=== PATIENT | female | born 1935 | race Caucasian/White ===

== ENCOUNTER 2017-07-01 10:37 | Emergency (ER) | payer MEDICARE ==
[2017-07-01 10:52] VITALS: TEMP 98.2
[2017-07-01] MEDS ORDERED: SODIUM CHLORIDE 0.9% 1,000 ML IV STA (11:30)
[2017-07-01] MEDS ORDERED: LABETALOL 5 MG/ML VIAL MDV IVP STA (11:30)
--- NOTE | 2017-07-01 11:37 | ED ---
General Adult HPI - General Chief complaint: Recheck/Abnormal Lab/Rx Stated complaint: Hypertensive Time Seen by Provider: 07/01/17 10:57 Source: patient, RN notes reviewed Mode of arrival: wheelchair Limitations: no limitations - History of Present Illness Initial comments: 81-year-old female presents to the emergency department with a chief complaint of hypertension. She was recently switched to losartan last week. She woke up this morning and took her blood pressure and it was high. She states it was in the 190s over 90s. She denies any symptoms no headache no nausea no vomiting no falls. She states she did not take her dose of losartan this morning she just came here. She denies any weakness. She states that she's not having any other symptoms. She just was concerned due to her blood pressure so she thought that she should be seen. Patient denies any recent fever, chills, shortness of breath, chest pain, back pain, abdominal pain, nausea vomiting, numbness or tingling, dysuria or hematuria, constipation or diarrhea, headaches or visual changes, or any other current symptoms. - Related Data Home Medications Medication Instructions Recorded Confirmed Cholecalciferol [Vitamin D3] 1,000 unit PO DAILY 07/01/17 07/01/17 Cinnamon Bark [Cinnamon] 500 mg PO DAILY 07/01/17 07/01/17 Fish Oil(Unknown Dose) 1 cap PO DAILY 07/01/17 07/01/17 Garlic 1 tab PO DAILY 07/01/17 07/01/17 Levothyroxine Sodium [Synthroid] 125 mcg PO DAILY 07/01/17 07/01/17 Losartan [Cozaar] 50 mg PO DAILY 07/01/17 07/01/17 Allergies Allergy/AdvReac Type Severity Reaction Status Date / Time No Known Allergies Allergy Verified 07/01/17 11:25 Review of Systems ROS Statement: Those systems with pertinent positive or pertinent negative responses have been documented in the HPI. ROS Other: All systems not noted in ROS Statement are negative. Past Medical History Past Medical History: Cancer, Hypertension, Thyroid Disorder History of Any Multi-Drug Resistant Organisms: None Reported Additional Past Surgical History / Comment(s): throidectomy Past Psychological History: No Psychological Hx Reported Smoking Status: Never smoker Past Alcohol Use History: Occasional Past Drug Use History: None Reported General Exam Limitations: no limitations General appearance: alert, in no apparent distress Eye exam: Present: normal appearance, PERRL, EOMI. Absent: scleral icterus, conjunctival injection, periorbital swelling ENT exam: Present: normal exam, mucous membranes moist Neck exam: Present: normal inspection. Absent: tenderness, meningismus, lymphadenopathy Respiratory exam: Present: normal lung sounds bilaterally. Absent: respiratory distress, wheezes, rales, rhonchi, stridor Cardiovascular Exam: Present: regular rate, normal rhythm, normal heart sounds. Absent: systolic murmur, diastolic murmur, rubs, gallop, clicks Neurological exam: Present: alert, oriented X3 Psychiatric exam: Present: normal affect, normal mood Skin exam: Present: warm, dry, intact, normal color. Absent: rash Course Vital Signs 07/01/17 07/01/17 07/01/17 10:47 11:19 12:30 Temperature 98.2 F Pulse Rate 94 91 Respiratory 18 19 Rate Blood Pressure 187/99 196/94 147/78 O2 Sat by Pulse 97 100 100 Oximetry EKG Findings - EKG Comments: EKG Findings:: Sinus rhythm with premature atrial complexes, ventricular 72, [place] interval 1:30, QS duration 84 Medical Decision Making - Medical Decision Making 81-year-old female presents for concern due to hypertension. Patient's medications were recently changed and she did not take this morning's dose. This time patient's lab work is been reviewed. At this time we discussed the importance of taking her medications as prescribed. We discussed follow-up and return parameters. Patient stated that she understood and she questions have been answered. She'll be discharged. - Lab Data Result diagrams: 07/01/17 11:45 07/01/17 11:45 Lab Results 07/01/17 07/01/17 07/01/17 Range/Units 11:45 11:45 11:45 WBC 7.7 (3.8-10.6) k/uL RBC 5.21 (3.80-5.40) m/uL Hgb 15.2 (11.4-16.0) gm/dL Hct 45.5 (34.0-46.0) % MCV 87.3 (80.0-100.0) fL MCH 29.1 (25.0-35.0) pg MCHC 33.3 (31.0-37.0) g/dL RDW 13.8 (11.5-15.5) % Plt Count 218 (150-450) k/uL Neutrophils % 73 % Lymphocytes % 18 % Monocytes % 7 % Eosinophils % 1 % Basophils % 1 % Neutrophils # 5.6 (1.3-7.7) k/uL Lymphocytes # 1.4 (1.0-4.8) k/uL Monocytes # 0.5 (0-1.0) k/uL Eosinophils # 0.1 (0-0.7) k/uL Basophils # 0.0 (0-0.2) k/uL Sodium 142 (137-145) mmol/L Potassium 4.5 (3.5-5.1) mmol/L Chloride 104 (98-107) mmol/L Carbon Dioxide 26 (22-30) mmol/L Anion Gap 12 mmol/L BUN 19 H (7-17) mg/dL Creatinine 0.96 (0.52-1.04) mg/dL Est GFR (MDRD) Af Amer >60 (>60 ml/min/1.73 sqM) Est GFR (MDRD) Non-Af 56 (>60 ml/min/1.73 sqM) Glucose 129 H (74-99) mg/dL Calcium 10.3 H (8.4-10.2) mg/dL Total Bilirubin 1.6 H (0.2-1.3) mg/dL AST 23 (14-36) U/L ALT 22 (9-52) U/L Alkaline Phosphatase 133 H (38-126) U/L Troponin I <0.012 (0.000-0.034) ng/mL Total Protein 7.8 (6.3-8.2) g/dL Albumin 4.6 (3.5-5.0) g/dL Urine Color Urine Appearance (Clear) Urine pH (5.0-8.0) Ur Specific [place] (1.001-1.035) Urine Protein (Negative) Urine Glucose (UA) (Negative) Urine Ketones (Negative) Urine Blood (Negative) Urine Nitrite (Negative) Urine Bilirubin (Negative) Urine Urobilinogen (<2.0) mg/dL Ur Leukocyte Esterase (Negative) Urine RBC (0-5) /hpf Urine WBC (0-5) /hpf Ur Squamous Epith Cells (0-4) /hpf Hyaline Casts (0-2) /lpf Urine Mucus (None) /hpf 07/01/17 Range/Units 12:05 WBC (3.8-10.6) k/uL RBC (3.80-5.40) m/uL Hgb (11.4-16.0) gm/dL Hct (34.0-46.0) % MCV (80.0-100.0) fL MCH (25.0-35.0) pg MCHC (31.0-37.0) g/dL RDW (11.5-15.5) % Plt Count (150-450) k/uL Neutrophils % % Lymphocytes % % Monocytes % % Eosinophils % % Basophils % % Neutrophils # (1.3-7.7) k/uL Lymphocytes # (1.0-4.8) k/uL Monocytes # (0-1.0) k/uL Eosinophils # (0-0.7) k/uL Basophils # (0-0.2) k/uL Sodium (137-145) mmol/L Potassium (3.5-5.1) mmol/L Chloride (98-107) mmol/L Carbon Dioxide (22-30) mmol/L Anion Gap mmol/L BUN (7-17) mg/dL Creatinine (0.52-1.04) mg/dL Est GFR (MDRD) Af Amer (>60 ml/min/1.73 sqM) Est GFR (MDRD) Non-Af (>60 ml/min/1.73 sqM) Glucose (74-99) mg/dL Calcium (8.4-10.2) mg/dL Total Bilirubin (0.2-1.3) mg/dL AST (14-36) U/L ALT (9-52) U/L Alkaline Phosphatase (38-126) U/L Troponin I (0.000-0.034) ng/mL Total Protein (6.3-8.2) g/dL Albumin (3.5-5.0) g/dL Urine Color Yellow Urine Appearance Clear (Clear) Urine pH 5.5 (5.0-8.0) Ur Specific [place] 1.021 (1.001-1.035) Urine Protein 1+ H (Negative) Urine Glucose (UA) Negative (Negative) Urine Ketones 2+ H (Negative) Urine Blood Trace H (Negative) Urine Nitrite Negative (Negative) Urine Bilirubin Negative (Negative) Urine Urobilinogen <2.0 (<2.0) mg/dL Ur Leukocyte Esterase Small H (Negative) Urine RBC 2 (0-5) /hpf Urine WBC 12 H (0-5) /hpf Ur Squamous Epith Cells 1 (0-4) /hpf Hyaline Casts 24 H (0-2) /lpf Urine Mucus Moderate H (None) /hpf Disposition Clinical Impression: Hypertension Disposition: HOME SELF-CARE Condition: Stable Instructions: Hypertension (ED) Additional Instructions: Please use medication as discussed. Please follow up with family doctor if symptoms have not improved over the next two days. Please return to the emergency room if your symptoms increase or worsen or for any other concerns. Referrals: Chloe Menjivar MD [Primary Care Provider] - 1-2 days Time of Disposition: 13:08
[2017-07-01 12:23] LABS: Basophils % (A) 1 %; Eosinophils # (A) 0.1 k/uL (0-0.7); Eosinophils % (A) 1 %; HCT 45.5 % (34.0-46.0); HGB 15.2 gm/dL (11.4-16.0); Lymphocytes # (A) 1.4 k/uL (1.0-4.8); Lymphocytes % (A) 18 %; MCH 29.1 pg (25.0-35.0); MCHC 33.3 g/dL (31.0-37.0); MCV 87.3 fL (80.0-100.0); Mean Platelet Volume 7.8; Monocytes # (A) 0.5 k/uL (0-1.0); Monocytes % (A) 7 %; Neutrophils # (A) 5.6 k/uL (1.3-7.7); Neutrophils % (A) 73 %; Platelet Count 218 k/uL (150-450); RBC 5.21 m/uL (3.80-5.40); RDW 13.8 % (11.5-15.5); WBC 7.7 k/uL (3.8-10.6)
[2017-07-01 12:29] LABS: ALT 22 U/L (9-52); AST 23 U/L (14-36); Albumin 4.6 g/dL (3.5-5.0); Alkaline Phosphatase 133 U/L (38-126); Anion Gap 12 mmol/L; Blood Urea Nitrogen 19 mg/dL (7-17); Calcium 10.3 mg/dL (8.4-10.2); Carbon Dioxide 26 mmol/L (22-30); Chloride 104 mmol/L (98-107); Glucose 129 mg/dL (74-99); Potassium 4.5 mmol/L (3.5-5.1); Sodium 142 mmol/L (137-145); Total Bilirubin 1.6 mg/dL (0.2-1.3); Total Protein 7.8 g/dL (6.3-8.2)
[2017-07-01 12:33] LABS: Appearance,Urine Clear (Clear); Bilirubin,Urine Negative (Negative); Blood,Urine Trace (Negative); Color,Urine Yellow; Glucose,Urine (UA) Negative (Negative); Hyaline Casts,Urine 24 /lpf (0-2); Ketones,Urine 2+ (Negative); Leukocyte Esterase,Urine Small (Negative); Mucus,Urine Moderate /hpf; Nitrite,Urine Negative (Negative); PH, Urine 5.5 (5.0-8.0); Protein,Urine 1+ (Negative); RBC,Urine 2 /hpf (0-5); Specific Gravity,Urine 1.021 (1.001-1.035); Squamous Epithelial Cell,Urine 1 /hpf (0-4); Urobilinogen,Urine <2.0 mg/dL (<2.0); WBC,Urine 12 /hpf (0-5)
[2017-07-01 13:10] VITALS: BP 142/82; PULSE 76; RESP 16
== END 2017-07-01 13:20 | disposition home or self-care (01) ==
LOC: EC 10:37
DX: I10 Essential (primary) hypertension (principal); E89.0 Postprocedural hypothyroidism; Z79.899 Other long term (current) drug therapy
CPT/HCPCS: 36415; 80053; 81001; 84484; 85025; 93005; 96374; 99283

== ENCOUNTER → 2017-08-26 | Outpatient (CLI) | payer MEDICARE ==
--- NOTE | 2017-08-27 10:37 | ECHOF ---
Referral Reason:R07.89 Other Chest Pain MEASUREMENTS -------- HEIGHT: 157.5 cm WEIGHT: 58.5 kg BP: IVSd: 1.1 cm (0.6 - 1.1) LVIDd: 4.0 cm (3.9 - 5.3) LVPWd: 1.1 cm (0.6 - 1.1) IVSs: 1.5 cm LVIDs: 1.3 cm LVPWs: 1.8 cm LAESV Index (A-L): 21.30 ml/m Ao Diam: 2.7 cm (2.0 - 3.7) AV Cusp: 1.9 cm (1.5 - 2.6) LA Diam: 3.2 cm (2.7 - 3.8) MV EXCURSION: 13.059 mm (> 18.000) MV EF SLOPE: 34 mm/s (70 - 150) EPSS: 1.1 cm MV E Bryan: 0.84 m/s MV DecT: 218 ms MV A Bryan: 0.99 m/s MV E/A Ratio: 0.85 RAP: 5.00 mmHg RVSP: 14.52 mmHg FINDINGS -------- Sinus rhythm. This was a technically good study. The left ventricular size is normal. Left ventricular wall thickness is normal. Overall left vent ricular systolic function is normal with, an EF between 55 - 60 %. The right ventricle is normal in size and function. The left atrium is normal in size. The right atrium is normal in size. Aortic valve is trileaflet and is mildly thickened. The mitral valve leaflets are mildly thickened. There is trace mitral regurgitation. Trace tricuspid regurgitation present. The right ventricular systolic pressure, as measured by Dopp ler, is 14.52mmHg. Pulmonic valve appears structurally normal. The aortic root size is normal. Normal inferior vena cava with normal inspiratory collapse consistent with estimated right atrial pre ssure of 5 mmHg. The pericardium is normal. CONCLUSIONS -------- 1. Sinus rhythm. 2. This was a technically good study. 3. The left ventricular size is normal. 4. Left ventricular wall thickness is normal. 5. Overall left ventricular systolic function is normal with, an EF between 55 - 60 %. 6. The right ventricle is normal in size and function. 7. The left atrium is normal in size. 8. The right atrium is normal in size. 9. Aortic valve is trileaflet and is mildly thickened. 10. The mitral valve leaflets are mildly thickened. 11. There is trace mitral regurgitation. 12. Trace tricuspid regurgitation present. 13. The right ventricular systolic pressure, as measured by Doppler, is 14.52mmHg. 14. Pulmonic valve appears structurally normal. 15. The aortic root size is normal. 16. Normal inferior vena cava with normal inspiratory collapse consistent with estimated right atrial pressure of 5 mmHg. 17. The pericardium is normal. PRODUCTION ESTIMATOR: Kathie Christensen RDCS
== END | disposition home or self-care (01) ==
LOC: RADECHMAIN 14:17
PROVIDERS: ATTEND Internal Medicine
DX: R07.89 Other chest pain (principal)
CPT/HCPCS: 93306

== ENCOUNTER 2024-03-26 12:32 | Inpatient (IN) | payer MEDICARE ==
[2024-03-26 12:54] LABS: Glucose,Whole Blood 226 mg/dL (70-110)
[2024-03-26 13:03] LABS: Anisocytosis Slight; Basophils # (A) 0.1 k/uL (0-0.2); Basophils % (A) 1 %; Eosinophils # (A) 0.1 k/uL (0-0.7); Eosinophils % (A) 1 %; HCT 42.6 % (34.0-46.0); HGB 13.7 gm/dL (11.4-16.0); Lymphocytes # (A) 1.4 k/uL (1.0-4.8); Lymphocytes % (A) 14 %; MCH 28.9 pg (25.0-35.0); MCHC 32.2 g/dL (31.0-37.0); MCV 89.7 fL (80.0-100.0); Mean Platelet Volume 8.3; Monocytes # (A) 0.6 k/uL (0-1.0); Monocytes % (A) 6 %; Neutrophils # (A) 7.6 k/uL (1.3-7.7); Neutrophils % (A) 78 %; Platelet Count 245 k/uL (150-450); RBC 4.75 m/uL (3.80-5.40); RDW 16.3 % (11.5-15.5); WBC 9.8 k/uL (3.8-10.6)
--- NOTE | 2024-03-26 13:05 | ED ---
General Adult HPI - General Chief complaint: Neuro Symptoms/Deficit Stated complaint: Slurred speech Time Seen by Provider: 03/26/24 12:48 Source: patient, family, RN notes reviewed, old records reviewed - History of Present Illness Initial comments: Patient is an 88-year-old female with past medical history remarkable for hypertension, sciatica, hypothyroidism secondary to thyroidectomy who presents emergency department complaining of wake-up symptoms of slurred speech, aphasia. No prior history of stroke. Unknown if she took her medications this morning. Patient's daughter noticed that when she called this morning at approximately 7:30 AM, patient was talking funny. States it was somewhat slurred but also confused and mixing up words. Patient denies any symptoms other than chronic sciatica pain in her leg. She denies chest pain or shortness of breath. Denies any abdominal pain. Intermittently has the symptoms. Is still coherent but will confuse words as well as discussions and instructions. Presents for further evaluation at this time. Only significant recent history is increased urinary frequency. Unknown if she has a UTI. Patient is not on blood thinners. No trauma. Last known well was sometime last night when she spoke with her daughter. Symptoms began when she awoke this morning. - Related Data Allergies Allergy/AdvReac Type Severity Reaction Status Date / Time No Known Allergies Allergy Verified 07/01/17 11:25 Review of Systems ROS Statement: Those systems with pertinent positive or pertinent negative responses have been documented in the HPI. Review of Systems: CONST: Denies fever EYES: Denies blurry vision ENT: Denies nasal congestion C/V: Denies Chest pain RESP: Denies shortness of breath GI: Denies abdominal pain : Denies dysuria SKIN: Denies rash. MSK: Denies joint pain. NEURO: Denies headache ROS Other: All systems not noted in ROS Statement are negative. Past Medical History Past Medical History: Cancer, Hypertension, Thyroid Disorder History of Any Multi-Drug Resistant Organisms: None Reported Additional Past Surgical History / Comment(s): throidectomy Past Psychological History: No Psychological Hx Reported Past Alcohol Use History: Occasional Past Drug Use History: None Reported General Exam - General Exam Comments Initial Comments: General: Appears in no acute distress. HEAD: Normal with no signs of head trauma. EYES: PERRLA, EOMI, conjunctiva normal, no discharge. Pupils are 2 mm and equal bilaterally. ENT: Hearing grossly intact, normal oropharynx. RESPIRATORY: Clear breath sounds bilaterally. No wheezes, rales, or rhonchi. C/V: Regular rate and rhythm. S1 and S2 auscultated, no edema, peripheral pulses 2+ and intact throughout ABD: Abd is soft, nontender, nondistended EXT: Normal range of motion, no obvious deformity SKIN: No rashes or lesions observed on exposed skin. NEURO: Alert and oriented x 4. Cranial nerves II through XII appear to be intact. NIH is 2. Received at 1 point for dysarthria and 1 point for aphasia. Aphasia seems to be more expressive. Course Vital Signs 03/26/24 03/26/24 03/26/24 12:34 12:50 12:51 Temperature 98.7 F Pulse Rate 97 87 92 Respiratory 20 18 20 Rate Blood Pressure 225/99 199/98 199/98 O2 Sat by Pulse 89 L 99 99 Oximetry 03/26/24 13:05 Temperature Pulse Rate 84 Respiratory 18 Rate Blood Pressure 209/110 O2 Sat by Pulse 98 Oximetry Medical Decision Making - Medical Decision Making Was pt. sent in by a medical professional or institution (, PA, [employer], urgent care, hospital, or jail...) When possible be specific @ -No Did you speak to anyone other than the patient for history (EMS, parent, family, police, friend...)? What history was obtained from this source @ -Spoke with patient's daughter who is at bedside and assist with patient's past medical history. Did you review nursing and triage notes (agree or disagree)? Why? @ -I reviewed and agree with nursing and triage notes Were old charts reviewed (outside hosp., previous admission, EMS record, old EKG, old radiological studies, urgent care reports/EKG's, jail records)? Report findings @ -Old charts reviewed confirming patient does have history of hypertension and thyroid disease. I do not see a blood thinner listed upon list of medications Differential Diagnosis (chest pain, altered mental status, abdominal pain women, abdominal pain men, vaginal bleeding, weakness, fever, dyspnea, syncope, headach e, dizziness, GI bleed, back pain, seizure, CVA, palpatations, mental health, musculoskeletal)? @ -Differential CVA Ischemic stroke, hemorrhagic stroke, brain tumor, atypical migraine, Wernicke's encephalopathy, seizure, multiple sclerosis, meningitis, encephalitis, hypoglycemia, Guillain-Lawson, electrolytes disturbance, myasthenia gravis.... This is not meant to be an all-inclusive list EKG interpreted by me (3pts min.). @ -As above X-rays interpreted by me (1pt min.). @ -Chest x-ray reveals no obvious acute cardiopulmonary process. CT interpreted by me (1pt min.). @ -CT brain reveals likely chronic calcified meningioma. No other obvious acute findings. CT angiogram of the head and neck reveals no obvious large vessel occlusion or acute findings. U/S interpreted by me (1pt. min.). @ -None done What testing was considered but not performed or refused? (CT, X-rays, U/S, labs)? Why? @ -None What meds were considered but not given or refused? Why? @ -None Did you discuss the management of the patient with other professionals (professionals i.e. DrHung, PA, [employer], lab, RT, psych nurse, social worker palliative care, sales technician home theater, teacher, staff combat information center officer, field case manager)? Give summary @ -Spoke with the neurointensivist, Dr. Perez. Was in agreement with plan for likely medical management concerning patient's low NIH as well as unknown last known well. Agreed not to administer thrombolytic therapy at this time. Agreed risks outweighed benefit. Also was in agreement with plan for permissive hypertension. Spoke with the admitting provider, Dr. Landry who accepted the admission. Was smoking cessation discussed for >3mins.? @ -No Was critical care preformed (if so, how long)? @ -Yes, 36 minutes Were there social determinants of health that impacted care today? How? (Homelessness, low income, unemployed, alcoholism, drug addiction, transportation, low edu. Level, literacy, decrease access to med. care, intermediate, rehab)? @ -No Was there de-escalation of care discussed even if they declined (Discuss DNR or withdrawal of care, Hospice)? DNR status @ -No What co-morbidities impacted this encounter? (DM, HTN, Smoking, COPD, CAD, Cancer, CVA, ARF, Chemo, Hep., AIDS, mental health diagnosis, sleep apnea, morbid obesity)? @ -Hypertension Was patient admitted / discharged? Hospital course, mention meds given and route, prescriptions, significant lab abnormalities, going to OR and other pe rtinent info. @ -Patient presents emergency department with strokelike symptoms. Appears to have expressive aphasia with intermittent dysarthria. NIH at worst is a 2. Last known well was sometime yesterday evening. Woke up with symptoms. Therefore patient is not a candidate for thrombolytic therapy. Risks far outweigh the benefits. Patient is outside of the time window. Symptoms were noticed this morning at approximately 7:30 AM when patient's daughter called her and noticed it over the phone. She spoke with her yesterday evening and patient was acting normally. Patient feels like she does not have any symptoms. Unknown what time these occurred between now and yesterday evening. As stated above, risks far outweigh the benefits of administering thrombolytic therapy. Patient and patient's daughter in agreement this plan. Patient made a code stroke. Code stroke was activated at 1250. Vital signs remarkable for mild hypertension. Spoke with the neurointensivist, Dr. Perez at 1310. Was in agreement with plan for likely medical management concerning patient's low NIH as well as unknown last known well. Agreed not to administer thrombolytic therapy at this time. Agreed risks outweighed benefit. Also was in agreement with plan for permissive hypertension. EKG shows no signs of acute ischemia. Imaging reveals a left temporal calcified meningioma which is likely chronic and an incidental finding. No other obvious acute findings. Laboratory studies unremarkable. I discussed results with patient as well as daughter. Recommended admission for neurology evaluation as well as MRI. They were in agreement this plan. Patient administered 325 mg of aspirin. Neurology consulted. I spoke with the admitting provider, Dr. Landry who accepted the admission. Symptoms at time of admission are improved. Intermittent NIH of 1 for the mild expressive aphasia w hich is improved from when I evaluated the patient.We will continue with permissive hypertension at this time. Undiagnosed new problem with uncertain prognosis? @ -No Drug Therapy requiring intensive monitoring for toxicity (Heparin, Nitro, Insulin, Cardizem)? @ -No Were any procedures done? @ -No Diagnosis/symptom? @ -CVA Acute, or Chronic, or Acute on Chronic? @ -Acute Uncomplicated (without systemic symptoms) or Complicated (systemic symptoms)? @ -Complicated Side effects of treatment? @ -None Exacerbation, Progression, or Severe Exacerbation] @ -No Poses a threat to life or bodily function? @ -Potentially, yes - Lab Data Result diagrams: 03/26/24 12:54 03/26/24 12:54 Lab Results 03/26/24 03/26/24 03/26/24 Range/Units 12:53 12:54 12:54 WBC 9.8 (3.8-10.6) k/uL RBC 4.75 (3.80-5.40) m/uL Hgb 13.7 (11.4-16.0) gm/dL Hct 42.6 (34.0-46.0) % MCV 89.7 (80.0-100.0) fL MCH 28.9 (25.0-35.0) pg MCHC 32.2 (31.0-37.0) g/dL RDW 16.3 H (11.5-15.5) % Plt Count 245 (150-450) k/uL MPV 8.3 Neutrophils % 78 % Lymphocytes % 14 % Monocytes % 6 % Eosinophils % 1 % Basophils % 1 % Neutrophils # 7.6 (1.3-7.7) k/uL Lymphocytes # 1.4 (1.0-4.8) k/uL Monocytes # 0.6 (0-1.0) k/uL Eosinophils # 0.1 (0-0.7) k/uL Basophils # 0.1 (0-0.2) k/uL Anisocytosis Slight PT 10.1 (10.0-12.5) sec INR 0.9 (<1.2) APTT 24.2 (22.0-30.0) sec Sodium (137-145) mmol/L Potassium (3.5-5.1) mmol/L Chloride (98-107) mmol/L Carbon Dioxide (22-30) mmol/L Anion Gap mmol/L BUN (7-17) mg/dL Creatinine (0.52-1.04) mg/dL Est GFR (CKD-EPI)AfAm (>60 ml/min/1.73 sqM) Est GFR (CKD-EPI)NonAf (>60 ml/min/1.73 sqM) Glucose (74-99) mg/dL POC Glucose (mg/dL) 226 H (70-110) mg/dL POC Glu Shot Blaster ID Branden Lozada Calcium (8.4-10.2) mg/dL Total Bilirubin (0.2-1.3) mg/dL AST (14-36) U/L ALT (4-34) U/L Alkaline Phosphatase (38-126) U/L Creatine Kinase (30-135) U/L Total Protein (6.3-8.2) g/dL Albumin (3.5-5.0) g/dL 03/26/24 Range/Units 12:54 WBC (3.8-10.6) k/uL RBC (3.80-5.40) m/uL Hgb (11.4-16.0) gm/dL Hct (34.0-46.0) % MCV (80.0-100.0) fL MCH (25.0-35.0) pg MCHC (31.0-37.0) g/dL RDW (11.5-15.5) % Plt Count (150-450) k/uL MPV Neutrophils % % Lymphocytes % % Monocytes % % Eosinophils % % Basophils % % Neutrophils # (1.3-7.7) k/uL Lymphocytes # (1.0-4.8) k/uL Monocytes # (0-1.0) k/uL Eosinophils # (0-0.7) k/uL Basophils # (0-0.2) k/uL Anisocytosis PT (10.0-12.5) sec INR (<1.2) APTT (22.0-30.0) sec Sodium 139 (137-145) mmol/L Potassium 4.1 (3.5-5.1) mmol/L Chloride 103 (98-107) mmol/L Carbon Dioxide 29 (22-30) mmol/L Anion Gap 7 mmol/L BUN 18 H (7-17) mg/dL Creatinine 0.94 (0.52-1.04) mg/dL Est GFR (CKD-EPI)AfAm 64 (>60 ml/min/1.73 sqM) Est GFR (CKD-EPI)NonAf 55 (>60 ml/min/1.73 sqM) Glucose 245 H (74-99) mg/dL POC Glucose (mg/dL) (70-110) mg/dL POC Glu Shot Blaster ID Calcium 10.0 (8.4-10.2) mg/dL Total Bilirubin 0.9 (0.2-1.3) mg/dL AST 32 (14-36) U/L ALT 18 (4-34) U/L Alkaline Phosphatase 136 H (38-126) U/L Creatine Kinase 74 (30-135) U/L Total Protein 7.6 (6.3-8.2) g/dL Albumin 4.6 (3.5-5.0) g/dL - EKG Data -: EKG Interpreted by Me EKG Comments: 12-lead Electrocardiogram Interpretation Note EKG was reviewed and interpreted by myself. 12-lead ECG performed at 1323 is interpreted by me as revealing normal sinus rhythm at a rate of 88 beats per minute. [place] is normal. MI interval is 120 ms, QRS duration is 89 ms, QTc is 392 ms.. There were no ST or T wave abnormalities to suggest myocardial ischemia or injury. R wave progression across the precordium was satisfactory. By my interpretation this EKG is non-diagnostic for acute ischemia. Critical Care Time Critical Care Time: Yes Total Critical Care Time: 36 Disposition Clinical Impression: Cerebrovascular accident (CVA) Disposition: ADMITTED IP TO THIS [facility] Condition: Stable Referrals: None,Stated [REFERRING] - 1-2 days Time of Disposition: 14:15
[2024-03-26 13:12] LABS: ALT 18 U/L (4-34); AST 32 U/L (14-36); African American GFR (CKD) 64 (>60 ml/min/1.73 sqM); Albumin 4.6 g/dL (3.5-5.0); Alkaline Phosphatase 136 U/L (38-126); Anion Gap 7 mmol/L; Blood Urea Nitrogen 18 mg/dL (7-17); Carbon Dioxide 29 mmol/L (22-30); Chloride 103 mmol/L (98-107); Creatine Kinase 74 U/L (30-135); Glucose 245 mg/dL (74-99); INR 0.9 (<1.2); Non-African American GFR(CKD) 55 (>60 ml/min/1.73 sqM); Partial Thromboplastin Time 24.2 sec (22.0-30.0); Potassium 4.1 mmol/L (3.5-5.1); Prothrombin Time 10.1 sec (10.0-12.5); Sodium 139 mmol/L (137-145); Total Bilirubin 0.9 mg/dL (0.2-1.3); Total Protein 7.6 g/dL (6.3-8.2)
--- NOTE | 2024-03-26 13:14 | CT ---
EXAMINATION TYPE: CODE STROKE: CT brain wo contr DATE OF EXAM: 03/26/2024 1:09 PM COMPARISON: None CLINICAL INDICATION: Female, 88 years old with history of Neuro deficit, acute, stroke suspected, [facility] RRED SPEECH AND CONFUSION TECHNIQUE: Brain: Axial CT images of the brain were obtained with coronal and sagittal reformats created and rev iewed. Contrast used: None. Oral contrast used: None. CT DLP: 1100.6 mGycm, Automated exposure control for dose reduction was used. FINDINGS: Brain: Extra-axial spaces: No abnormal extra-axial fluid collections. Left extra-axial calcified lesion like ly representing calcified meningioma measuring up to 18 mm. Ventricular system: Dilatation in proportion to cerebral atrophy. Cerebral parenchyma: Cerebral atrophy. No acute intraparenchymal hemorrhage or mass effect. The hanna -white junction is well differentiated. Scattered hypoattenuating areas are seen within the white mat ter. Cerebellum: Unremarkable. Mass effect: No evidence of midline shift. Intracranial vasculature: Atherosclerotic calcifications of the intracranial vessels. Soft tissues: Normal. Calvarium/osseous structures: No depressed skull fracture. Paranasal sinuses and mastoid air cells: Mild scattered paranasal sinus disease. Visualized orbits: Bilateral aphakia IMPRESSION: 1. No acute intracranial process. 2. Nonspecific white matter changes, likely secondary to chronic small vessel ischemic disease. 3. Left temporal region probable calcified meningioma. [facility], , 03/26/2024 1:12 PM
[2024-03-26] MEDS: SODIUM CHLORIDE 0.9% 1,000 ML IV STA (13:19)
--- NOTE | 2024-03-26 13:42 | CT ---
EXAMINATION TYPE: CT angio head neck DATE OF EXAM: 03/26/2024 1:25 PM COMPARISON: . CLINICAL INDICATION: Female, 88 years old with history of Neuro deficit, acute, stroke suspected; [facility] , [facility] SPEECH AND CONFUSION TECHNIQUE: Axially acquired helical CT angiogram of the head and neck was obtained with contrast. Axi al images are supplemented with 3D reconstructions and MIP images which were post-processed at an in dependent workstation. NASCET criteria used. Contrast used:65ml mL of Isovue 370 with IV Contrast, Oral contrast used: None. CT DLP: 307.5 mGycm, Automated exposure control for dose reduction was used. FINDINGS: CTA HEAD: No evidence of acute intracranial hemorrhage, mass effect, or midline shift. The ventricles, sulci, a nd cisterns are unremarkable. Bilaterally aphakia. Left extra-axial calcified meningioma. Vertebral arteries: The vertebral arteries are patent. Vertebral artery dominance: Codominant Basilar artery: The basilar artery is intact. The basilar artery bifurcation is normal. Internal Carotid arteries: The cervical, petrous, cavernous and supraclinoid segments are normal. DYANA: Patent with no evidence of aneurysm. ACOM: Present without evidence of aneurysm. MCA: Patent with no evidence of aneurysm. GANG RIDER: Female origin of the right posterior cerebral artery. Patent with no evidence of aneurysm. PCOM: Hypoplastic left and field margin right. Dural sinuses: Patent. CTA NECK: Right Carotid System: The common carotid and external carotid arteries are patent. There is less than 25% stenosis at the c arotid bifurcation secondary to calcified/noncalcified plaque. The rest of the internal carotid arter y is patent. Left Carotid System: The common carotid and external carotid arteries are patent. There is less than 25% stenosis at the c arotid bifurcation secondary to calcified/noncalcified plaque. The rest of the internal carotid arter y is patent. Vertebral arteries are patent without evidence hemodynamically significant stenosis. There is a three-vessel aortic arch. The origins of the great vessels are patent. No evidence of hemo dynamically significant stenosis. IMPRESSION: 1. No evidence of dissection of the cervical internal carotid arteries or vertebral arteries. 2. No any evidence of significant stenosis at the carotid bifurcations. 3. No evidence of intracranial high-grade stenosis or intracranial aneurysm. [facility], , 03/26/2024 1:40 PM
--- NOTE | 2024-03-26 13:45 | XR ---
EXAMINATION TYPE: XR chest 2V DATE OF EXAM: 03/26/2024 1:39 PM COMPARISON: None CLINICAL INDICATION: Female, 88 years old with history of altered mental status; [facility] TECHNIQUE: XR chest 2V Frontal and lateral views of the chest. FINDINGS: Lungs/Pleura: Prominent interstitial lung markings are seen scattered throughout the lungs. No eviden ce of focal consolidation, pneumothorax or pleural effusion. Pulmonary vascularity: Unremarkable. Heart/mediastinum: Cardiomediastinal silhouette is unremarkable. Musculoskeletal: No acute osseous pathology. IMPRESSION: No acute cardiopulmonary disease/process. [facility], , 03/26/2024 1:43 PM
[2024-03-26] MEDS: ASPIRIN 325 MG TAB PO STA (15:14)
[2024-03-26 20:32] LABS: Amorphous Sediment,Urine Rare /hpf; Appearance,Urine Clear (Clear); Bacteria,Urine Few /hpf; Bilirubin,Urine Negative (Negative); Blood,Urine Negative (Negative); Color,Urine Colorless; Glucose,Urine (UA) Negative (Negative); Ketones,Urine Negative (Negative); Leukocyte Esterase,Urine Small (Negative); Nitrite,Urine Negative (Negative); Protein,Urine Trace (Negative); RBC,Urine 2 /hpf (0-5); Specific Gravity,Urine 1.016 (1.001-1.035); Squamous Epithelial Cell,Urine <1 /hpf (0-4); Urobilinogen,Urine <2.0 mg/dL (<2.0); WBC,Urine 26 /hpf (0-5)
[2024-03-26 20:44] LABS: Amphetamine Screen,Urine Not Detected (NotDetected); Barbiturate Screen,Urine Not Detected (NotDetected); Benzodiazepines Screen,Urine Not Detected (NotDetected); Cocaine Screen,Urine Not Detected (NotDetected); Methadone Screen, Urine Not Detected (NotDetected); Opiate Screen,Urine Not Detected (NotDetected); Oxycodone Screen, Urine Not Detected (NotDetected); Phencyclidine Screen,Urine Not Detected (NotDetected); Tricyclic Antidepressant,Urine Not Detected (NotDetected); Urn Cannabinoid Scrn Not Detected (NotDetected)
--- NOTE | 2024-03-26 20:54 | P.HPIM ---
History of Present Illness This is a pleasant 88 years old female with no significant past medical history. Presents because she was talking funny this morning suspicious for slurred speech and aphasia which looks now is resolved. As per patient the daughter noticed this although the patient herself was not sure if this is what happened She denies any other specific symptoms like new weakness or tingling. No headache or dizziness No chest pain, no abdominal pain vomiting or diarrhea She is complaining from increased frequency of urination recently but no dysuria, no suprapubic pain She is non-smoker, nonalcoholic On admission her labs were within the reference range including CBC, BMP, LFT, INR and troponin She is afebrile Blood pressure slightly elevated, currently 157/80 Glucose was somewhat elevated Chest x-ray, CT of the brain were unremarkable Was CTA of the head and neck showing no significant stenosis or aneurysm. EKG is sinus rhythm at [address]-T changes Review of Systems Review of systems CONSTITUTIONAL: No fever, no malaise, no fatigue. HEENT: No recent visual problems or hearing problems. Denied any sore throat. CARDIOVASCULAR: No orthopnea, PND, no palpitations, no syncope. PULMONARY: No shortness of breath, no cough, no hemoptysis. GASTROINTESTINAL: No diarrhea, no nausea, no vomiting, no abdominal pain. Normoactive bowel sounds. NEUROLOGICAL: No headaches, no weakness, no numbness. HEMATOLOGICAL: Denies any bleeding or petechiae. GENITOURINARY: Denies any burning micturition, frequency, or urgency. MUSCULOSKELETAL/RHEUMATOLOGICAL: Denies any joint pain, swelling, or any muscle pain. ENDOCRINE: Denies any polyuria or polydipsia. Past Medical History Past Medical History: Cancer, Hypertension, Thyroid Disorder History of Any Multi-Drug Resistant Organisms: None Reported Additional Past Surgical History / Comment(s): throidectomy Past Psychological History: No Psychological Hx Reported Past Alcohol Use History: Occasional Past Drug Use History: None Reported Medications and Allergies Home Medications Medication Instructions Recorded Confirmed Type Levothyroxine Sodium [Synthroid] 200 mcg PO DAILY 03/26/24 03/26/24 History Allergies Allergy/AdvReac Type Severity Reaction Status Date / Time No Known Allergies Allergy Verified 07/01/17 11:25 Physical Exam Vitals: Vital Signs Temp Pulse Resp BP Pulse Ox 03/26/24 19:34 98.0 F 78 16 157/80 99 11/28/24 18:05 81 18 176/84 98 03/26/24 18:02 86 18 181/83 98 03/26/24 17:35 87 18 98 03/26/24 17:05 87 18 173/83 98 03/26/24 16:35 80 18 170/91 97 03/26/24 16:05 80 18 179/89 98 03/26/24 15:35 79 18 170/80 96 03/26/24 14:37 82 18 185/99 98 03/26/24 14:35 80 18 165/99 96 03/26/24 14:20 84 18 190/98 98 03/26/24 14:05 88 18 201/91 98 03/26/24 13:50 83 18 197/89 98 03/26/24 13:35 84 18 200/85 98 03/26/24 13:05 84 18 209/110 98 03/26/24 12:51 92 20 199/98 99 03/26/24 12:50 87 18 199/98 99 03/26/24 12:34 98.7 F 97 20 225/99 89 L Intake and Output 03/26/24 03/26/24 03/26/24 06:59 14:59 22:59 Other: Weight 54.431 kg GENERAL: The patient is alert and oriented x3, not in any acute distress. Well developed, well nourished. HEENT: Pupils are round and equally reacting to light. EOMI. No scleral icterus. No conjunctival pallor. Normocephalic, atraumatic. No pharyngeal erythema. No thyromegaly. CARDIOVASCULAR: S1 and S2 present. No murmurs, rubs, or gallops. -PULMONARY: Chest is clear to auscultation, no wheezing , bilateral basal crackles. ABDOMEN: Soft, nontender, nondistended, normoactive bowel sounds. No palpable organomegaly. MUSCULOSKELETAL: No joint swelling or deformity. -EXTREMITIES: No cyanosis, clubbing,, 2+ bilateral pitting leg edema. NEUROLOGICAL: Gross neurological examination did not reveal any focal deficits. SKIN: No rashes. no petechiae. Results CBC & Chem 7: 03/26/24 12:54 03/26/24 12:54 Labs: Abnormal Lab Results - Last 24 Hours (Table) 1103/26/24 03/26/24 Range/Units 12:53 12:54 12:54 RDW 16.3 H (11.5-15.5) % BUN 18 H (7-17) mg/dL Glucose 245 H (74-99) mg/dL POC Glucose (mg/dL) 226 H (70-110) mg/dL Alkaline Phosphatase 136 H (38-126) U/L Urine Protein (Negative) Ur Leukocyte Esterase (Negative) Urine WBC (0-5) /hpf Amorphous Sediment (None) /hpf Urine Bacteria (None) /hpf 03/26/24 Range/Units 19:45 RDW (11.5-15.5) % BUN (7-17) mg/dL Glucose (74-99) mg/dL POC Glucose (mg/dL) (70-110) mg/dL Alkaline Phosphatase (38-126) U/L Urine Protein Trace H (Negative) Ur Leukocyte Esterase Small H (Negative) Urine WBC 26 H (0-5) /hpf Amorphous Sediment Rare H (None) /hpf Urine Bacteria Few H (None) /hpf Assessment and Plan Assessment: Slurred speech and expressive aphasia suspicious for stroke Acute CHF with suspected with leg edema and check proBNP Hypertension, permissive hypertension is allowed to the view of possible stroke Hyperglycemia, rule out diabetes mellitus, Increased frequency of urination, rule out UTI or bladder retention Plan: Continue with aspirin, received one-time dose of 325 mg in the emergency room Check echocardiogram and carotid duplex with a neurology consult Check TSH Check hemoglobin A1c Monitor blood pressure Neurology consult labs and medication were reviewed.. Continue same treatment. Continue with symptomatic treatment. Resume home medication. Monitor labs and vitals. DVT and GI prophylaxis. Further recommendations as per clinical course of the patient DVT prophylaxis: Subcutaneous heparin GI Prophylaxis: Pepcid PT/OT: Pending Prognosis is guarded
[2024-03-26] MEDS: FAMOTIDINE 20 MG/2 ML VIAL IV SCH (21:22)
[2024-03-26] MEDS: HEPARIN SODIUM,PORCINE 5,000 UNIT/ML 1 ML VIAL SQ SCH (21:22)
[2024-03-27] MEDS: LEVOTHYROXINE 100 MCG TAB PO SCH (06:12)
[2024-03-27 07:11] LABS: African American GFR (CKD) 62 (>60 ml/min/1.73 sqM); Anion Gap 3 mmol/L; Blood Urea Nitrogen 16 mg/dL (7-17); Calcium 9.3 mg/dL (8.4-10.2); Carbon Dioxide 30 mmol/L (22-30); Chloride 106 mmol/L (98-107); Glucose 132 mg/dL (74-99); Non-African American GFR(CKD) 54 (>60 ml/min/1.73 sqM); Potassium 4.4 mmol/L (3.5-5.1); Sodium 139 mmol/L (137-145)
[2024-03-27 07:19] LABS: NT-Pro-B-Type Natriuretic Pept 769 pg/mL
[2024-03-27 07:26] LABS: Anisocytosis Slight; Basophils % (A) 1 %; Eosinophils # (A) 0.2 k/uL (0-0.7); Eosinophils % (A) 2 %; HCT 38.8 % (34.0-46.0); HGB 12.6 gm/dL (11.4-16.0); Lymphocytes # (A) 1.6 k/uL (1.0-4.8); Lymphocytes % (A) 22 %; MCH 29.4 pg (25.0-35.0); MCHC 32.4 g/dL (31.0-37.0); MCV 90.8 fL (80.0-100.0); Mean Platelet Volume 7.7; Monocytes # (A) 0.5 k/uL (0-1.0); Monocytes % (A) 7 %; Neutrophils # (A) 4.9 k/uL (1.3-7.7); Neutrophils % (A) 68 %; Platelet Count 204 k/uL (150-450); RBC 4.27 m/uL (3.80-5.40); RDW 16.2 % (11.5-15.5); WBC 7.3 k/uL (3.8-10.6)
--- NOTE | 2024-03-27 07:59 | P.CNNES ---
History of Present Illness Consult date: 03/27/24 Reason for Consult: Altered mental status with slurred speech. Chief complaint: "I do not know why I am here. I feel fine." History of Present Illness: Ms. Luong is a 88-year-old female right-handed with medical history of hypertension as well as sciatica and hypothyroidism for which she received thyroidectomy in the past. She was seen and admitted to [facility] on March 26, 2004 after she woke up 7:30 AM with slurred speech and possible aphasia. Her last known normal time was the previous night. She has noted some increased urinary frequency however, she is incontinent of urine wears pads normally. On admission her initial blood pressure was 209/100. This has been managed and is currently running 150s. Her speech abnormalities appear to improve if her blood pressure was lowered however her pressure was back up again this morning patient did have significant speech deficits. This appears to be possible waxing and waning according to the ER nurse. At this time she is alert and oriented x 3 with nonfocal neurologic exam. CT of the head as well as CT angiogram of the head and neck were negative last night. Neurology has been consulted for further management recommendations. Review of Systems Constitutional: Reports as per HPI Ears, nose, mouth and throat: Reports as per HPI Breasts: Reports as per HPI Cardiovascular: Reports chest pain Respiratory: Reports cough Gastrointestinal: Reports constipation Genitourinary: Reports stress incontinence, Reports urinary frequency Menstruation: Reports postmenopausal Musculoskeletal: Reports shooting leg pain Integumentary: Reports as per HPI Neurological: Reports as per HPI Psychiatric: Reports as per HPI Endocrine: Reports as per HPI Past Medical History Past Medical History: Cancer, Hypertension, Thyroid Disorder History of Any Multi-Drug Resistant Organisms: None Reported Additional Past Surgical History / Comment(s): throidectomy Past Psychological History: No Psychological Hx Reported Past Alcohol Use History: Occasional Past Drug Use History: None Reported Medications and Allergies Home Medications Medication Instructions Recorded Confirmed Type Levothyroxine Sodium [Synthroid] 200 mcg PO DAILY 03/26/24 03/26/24 History Allergies Allergy/AdvReac Type Severity Reaction Status Date / Time No Known Allergies Allergy Verified 07/01/17 11:25 Physical Examination - Vital Signs Vital Signs: Vital Signs Temp Pulse Resp BP Pulse Ox 03/27/24 07:00 88 20 150/88 98 03/27/24 06:37 97.9 F 77 16 178/83 98 03/27/24 05:05 60 16 172/86 96 03/27/24 03:55 58 L 16 150/80 97 03/27/24 02:51 98.2 F 61 14 138/86 98 03/27/24 02:13 61 16 138/86 97 03/27/24 01:07 68 16 132/76 97 03/27/24 00:00 68 16 152/79 98 03/26/24 23:00 62 16 141/80 98 03/26/24 19:34 98.0 F 78 16 157/80 99 03/26/24 18:05 81 18 176/84 98 03/26/24 18:02 86 18 181/83 98 03/26/24 17:35 87 18 98 03/26/24 17:05 87 18 173/83 98 03/26/24 16:35 80 18 170/91 97 03/26/24 16:05 80 18 179/89 98 03/26/24 15:35 79 18 170/80 96 03/26/24 14:37 82 18 185/99 98 03/26/24 14:35 80 18 165/99 96 03/26/24 14:20 84 18 190/98 98 03/26/24 14:05 88 18 201/91 98 03/26/24 13:50 83 18 197/89 98 03/26/24 13:35 84 18 200/85 98 03/26/24 13:05 84 18 209/110 98 03/26/24 12:51 92 20 199/98 99 03/26/24 12:50 87 18 199/98 99 03/26/24 12:34 98.7 F 97 20 225/99 89 L - Constitutional General appearance: average body habitus - EENT EENT: PERRL - Respiratory Respiratory: chest non-tender, lungs clear, normal breath sounds - Cardiovascular Cardiovascular: regular rate, no murmurs - Gastrointestinal Gastrointestinal: normoactive bowel sounds, non-tender - Integumentary Integumentary: normal - Neurologic Cranial nerve examination: PERRL, EOMI, VFF, V1/V2/V3 grossly intact, face symmetric, tongue midline, intact Speech examination: intact Sensorimotor examination: intact Detailed motor examination: full strength in all major muscle groups Detailed sensory examination: intact Reflex and gait examination: intact Results Contrast CT of the head from March 26 was read as no acute intracranial abnormalities with some small vessel disease as well as a left temporal ca lcified meningioma of uncertain significance. CT angiogram of the head and neck revealed no evidence of carotid dissection, high-grade stenosis, or aneurysm. Chest x-ray was read as negative as well as EKG with normal sinus rhythm at 88 bpm. Pertinent laboratories include white blood cell count of 9.8, creatinine of 0.94. Urinalysis revealed 26 white blood cells with small leukocyte Estrace. Urine drug screen was negative. - Laboratory Findings CBC and BMP: 03/27/24 06:46 03/27/24 06:46 Abnormal Lab Findings: Abnormal Labs 03/26/24 03/26/24 03/26/24 12:53 12:54 12:54 RDW 16.3 H BUN 18 H Glucose 245 H POC Glucose (mg/dL) 226 H Alkaline Phosphatase 136 H Urine Protein Ur Leukocyte Esterase Urine WBC Amorphous Sediment Urine Bacteria 03/26/24 03/27/24 03/27/24 19:45 06:46 06:46 RDW 16.2 H BUN Glucose 132 H POC Glucose (mg/dL) Alkaline Phosphatase Urine Protein Trace H Ur Leukocyte Esterase Small H Urine WBC 26 H Amorphous Sediment Rare H Urine Bacteria Few H Assessment and Plan Assessment: Ms. Luong is an 88-year-old right-handed female with history of hypertension, sciatica, hypothyroidism who was admitted last night with altered mental status and slurred speech elevated blood pressure of 209/110. It appears as though his blood pressure is lowered her symptoms appear to be improved. I do not detect any focal neurologic deficit on exam. She is underwent a CT and CT angiogram that are negative. Plan: 1 I will order a repeat noncontrast CT of the head for the morning of March 28 to look for any evidence of ischemia. If this is noted I may order an MRI and further stroke workup. 2. The primary team will manage the patient's blood pressure house. I do not believe she requires permissive hypertension at this time as I do not believe she has had a stroke. 3. Neurology will continue to follow the patient in house and make further recommendations as needed. Time with Patient: Less than 30
[2024-03-27 08:28] LABS: Appearance,Urine Cloudy (Clear); Bacteria,Urine Occasional /hpf; Bilirubin,Urine Negative (Negative); Blood,Urine Negative (Negative); Color,Urine Colorless; Glucose,Urine (UA) Negative (Negative); Ketones,Urine Negative (Negative); Leukocyte Esterase,Urine Large (Negative); Nitrite,Urine Negative (Negative); PH, Urine 6.5 (5.0-8.0); Protein,Urine Trace (Negative); RBC,Urine 3 /hpf (0-5); Specific Gravity,Urine 1.028 (1.001-1.035); Urobilinogen,Urine <2.0 mg/dL (<2.0); WBC,Urine 61 /hpf (0-5)
--- NOTE | 2024-03-27 08:48 | P.PN ---
Subjective Ms. Luong is a 88-year-old female right-handed with medical history of hypertension as well as sciatica and hypothyroidism for which she received thyroidectomy in the past. She was seen and admitted to [facility] on March 26, 2004 after she woke up 7:30 AM with slurred speech and possible aphasia. Her last known normal time was the previous night. She has noted some increased urinary frequency however, she is incontinent of urine wears pads normally. On admission her initial blood pressure was 209/100. This has been m anaged and is currently running 150s. Her speech abnormalities appear to improve if her blood pressure was lowered however her pressure was back up again this morning patient did have significant speech deficits. This appears to be possible waxing and waning according to the ER nurse. At this time she is alert and oriented x 3 with nonfocal neurologic exam. CT of the head as well as CT angiogram of the head and neck were negative last night. Neurology has been consulted for further management recommendations.\ 03/27 Patient doing well today, she denies any specific symptoms, no slurred speech, no other neurological symptom She is eager to go home but she agrees to stay now Blood pressure on the high side 157/80, metoprolol 12.5 mg and Norvasc 5 mg was added Also urine analysis is repeated and still suspicious for infection. Patient also with increased frequency. Will start patient on ceftriaxone pending urine culture Further workup like echocardiogram, carotid Dopplers, ultrasound of the legs and TSH are still pending Review of systems CONSTITUTIONAL: No fever, no malaise, no fatigue. HEENT: No recent visual problems or hearing problems. Denied any sore throat. CARDIOVASCULAR: No orthopnea, PND, no palpitations, no syncope. GENITOURINARY: Denies any burning micturition, frequency, or urgency. MUSCULOSKELETAL/RHEUMATOLOGICAL: Denies any joint pain, swelling, or any muscle pain. ENDOCRINE: Denies any polyuria or polydipsia. Active Medications Generic Name Dose Route Start Last Admin Trade Name Freq PRN Reason Stop Dose Admin Amlodipine Besylate 5 mg 03/27/24 09:00 Amlodipine 5 Mg Tab PO DAILY [facility]ETTE Aspirin 81 mg 03/27/24 09:00 Aspirin 81 Mg PO DAILY [facility] Famotidine 20 mg 03/26/24 21:00 03/26/24 21:22 Famotidine 20 Mg/2 Ml Vial IV 20 mg Q12HR [facility] Administration Heparin Sodium (Porcine) 5,000 unit 03/26/24 21:00 03/26/24 21:22 Heparin Sodium,Porcine 5,000 Unit/Ml 1 Ml Vial SQ 5,000 unit Q12HR [facility] Administration Ceftriaxone Sodium 1 gm/ 50 mls @ 100 mls/hr 03/27/24 09:00 Sodium Chloride IVPB Q24HR [facility] Protocol Levothyroxine Sodium 200 mcg 03/27/24 06:30 03/27/24 06:12 Levothyroxine 100 Mcg Tab PO 200 mcg DAILY@0630 [facility] Administration Metoprolol Tartrate 12.5 mg 03/27/24 09:00 Metoprolol Tartrate 12.5 Mg Tab PO BID [facility] Objective - Vital Signs Vital signs: Vital Signs Temp 98 F 03/27/24 08:00 Pulse 70 03/27/24 08:00 Resp 16 03/27/24 08:00 BP 170/86 03/27/24 08:00 Pulse Ox 98 03/27/24 08:00 FiO2 Intake & Output 03/26/24 03/27/24 03/27/24 18:59 06:59 18:59 Weight 54.431 kg - Exam GENERAL: The patient is alert and oriented x3, not in any acute distress. Well developed, well nourished. HEENT: Pupils are round and equally reacting to light. EOMI. No scleral icterus. No conjunctival pallor. Normocephalic, atraumatic. No pharyngeal erythema. No thyromegaly. CARDIOVASCULAR: S1 and S2 present. No murmurs, rubs, or gallops. PULMONARY: Chest is clear to auscultation, no wheezing , no crackles. ABDOMEN: Soft, nontender, nondistended, normoactive bowel sounds. No palpable organomegaly. MUSCULOSKELETAL: No joint swelling or deformity. EXTREMITIES: No cyanosis, clubbing, or pedal edema. NEUROLOGICAL: Gross neurological examination did not reveal any focal deficits. SKIN: No rashes. no petechiae. - Labs CBC & Chem 7: 03/27/24 06:46 03/27/24 06:46 Labs: Abnormal Lab Results - Last 24 Hours (Table) 03/26/24 03/26/24 03/26/24 Range/Units 12:53 12:54 12:54 RDW 16.3 H (11.5-15.5) % BUN 18 H (7-17) mg/dL Glucose 245 H (74-99) mg/dL POC Glucose (mg/dL) 226 H (70-110) mg/dL Alkaline Phosphatase 136 H (38-126) U/L Urine Appearance (Clear) Urine Protein (Negative) Ur Leukocyte Esterase (Negative) Urine WBC (0-5) /hpf Amorphous Sediment (None) /hpf Urine Bacteria (None) /hpf 03/26/24 03/27/24 03/27/24 Range/Units 19:45 06:45 06:46 RDW (11.5-15.5) % BUN (7-17) mg/dL Glucose 132 H (74-99) mg/dL POC Glucose (mg/dL) (70-110) mg/dL Alkaline Phosphatase (38-126) U/L Urine Appearance Cloudy H (Clear) Urine Protein Trace H Trace H (Negative) Ur Leukocyte Esterase Small H Large H (Negative) Urine WBC 26 H 61 H (0-5) /hpf Amorphous Sediment Rare H (None) /hpf Urine Bacteria Few H Occasional H (None) /hpf 03/27/24 Range/Units 06:46 RDW 16.2 H (11.5-15.5) % BUN (7-17) mg/dL Glucose (74-99) mg/dL POC Glucose (mg/dL) (70-110) mg/dL Alkaline Phosphatase (38-126) U/L Urine Appearance (Clear) Urine Protein (Negative) Ur Leukocyte Esterase (Negative) Urine WBC (0-5) /hpf Amorphous Sediment (None) /hpf Urine Bacteria (None) /hpf Assessment and Plan Assessment: Transient slurred speech and expressive aphasia suspicious for stroke versus TIA Acute urinary tract infection Hypertension, uncontrolled on admission Hyperglycemia, rule out diabetes mellitus Plan: Start ceftriaxone and follow-up urine culture Start metoprolol and Norvasc Continue with aspirin, received one-time dose of 325 mg in the emergency room Check echocardiogram and carotid duplex with a neurology consult Check TSH Check hemoglobin A1c Monitor blood pressure Neurology consult labs and medication were reviewed.. Continue same treatment. Continue with symptomatic treatment. Resume home medication. Monitor labs and vitals. DVT and GI prophylaxis. Further recommendations as per clinical course of the patient DVT prophylaxis: Subcutaneous heparin GI Prophylaxis: Pepcid PT/OT: Pending Prognosis is guarded
[2024-03-27] MEDS: ASPIRIN 81 MG PO SCH (08:54)
[2024-03-27] MEDS: METOPROLOL TARTRATE 12.5 MG TAB PO SCH (08:57)
[2024-03-27] MEDS: amLODIPine 5 MG TAB PO SCH (08:57)
--- NOTE | 2024-03-27 09:13 | US ---
EXAMINATION TYPE: US venous doppler duplex LE BI DATE OF EXAM: 03/27/2024 8:28 AM COMPARISON: NONE CLINICAL INDICATION: Female, 88 years old with history of leg swelling; edema, TECHNIQUE: The lower extremity deep venous system is examined utilizing real time linear array sonog jeremias with graded compression, color doppler sonography, and spectral doppler. SIDE PERFORMED: Bilateral FINDINGS: VESSELS IMAGED: Common Femoral Vein Deep Femoral Vein Greater Saphenous Vein * Femoral Vein Popliteal Vein Small Saphenous Vein * Proximal Calf Veins (* superficial vessels) Right Leg: Negative for DVT, Color Doppler imaging shows patency of the vessels. Spectral waveforms are within normal limits. Left Leg: Negative for DVT, Color Doppler imaging shows patency of the vessels. Spectral waveforms a re within normal limits. Generalized subcutaneous edema. There is a 4.0 x 1.1 cm Banegas cyst on the left and 4.5 x 0.8 cm Banegas cyst on the right. IMPRESSION: 1. No evidence for DVT within the bilateral lower extremities imaged from the groin to the upper calv es. 2. Some generalized subcutaneous soft tissue edema. 3. 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 [facility], , 03/27/2024 9:11 AM
--- NOTE | 2024-03-27 09:50 | US ---
EXAMINATION TYPE: US carotid duplex BILAT DATE OF EXAM: 03/27/2024 COMPARISON: NONE CLINICAL INDICATION: Female, 88 years old with history of Aphasia confusion Additional History: .... TECHNIQUE: Grayscale, color Doppler and spectral Doppler evaluation of the bilateral carotid systems and vertebral arteries. Indirect Doppler criteria was utilized. FINDINGS: EXAM MEASUREMENTS: RIGHT: Peak Systolic Velocity (PSV) cm/sec ----- Right CCA: 60.9 ----- Right ICA: 66.7 ----- Right ECA: 85.7 ICA/CCA ratio: 1.1 RIGHT: End Diastole cm/sec ----- Right CCA: 15.9 ----- Right ICA: 15.9 ----- Right ECA: 5.7 LEFT: Peak Systolic Velocity (PSV) cm/sec ----- Left CCA: 60.9 ----- Left ICA: 56.5 ----- Left ECA: 79.8 ICA/CCA ratio: 0.9 LEFT: End Diastole cm/sec ----- Left CCA: 8.6 ----- Left ICA: 8.6 ----- Left ECA: 0 VERTEBRALS (direction of flow): Right Vertebral: Antegrade Left Vertebral: Antegrade Rhythm: Normal INVESTMENT ADVISOR NOTES: No significant stenosis seen Color Doppler imaging shows patency with blood flow throughout the carotid artery. Spectral waveforms are within normal limits. Mild to moderate atherosclerotic plaque left bifurcation. IMPRESSION: No hemodynamically significant internal carotid artery stenosis on either side. Criteria for Assigning % of Stenosis / Diameter reduction (Estimation based on the indirect measurements of the internal carotid artery velocities (ICA PSV). 1. Normal (no stenosis)=ICA PSV < 125 cm/s: ratio < 2.0: ICA EDV<40 cm/s. 2. Less than 50% stenosis=ICA PSV < 125 cm/s: ratio < 2.0: ICA EDV<40 cm/s. 3. 50 to 69% stenosis=ICA PSV of 125 to 230 cm/s: ration 2.0 ? 4.0: ICA EDV 40-100 cm/s. 4. Greater than 70% stenosis to near occlusion= ICA PSV > 230 cm/s: ratio > 4.0: ICA EDV > 100 cm/s. 5. Near occlusion= ICA PSV velocities may be low or undetectable: variable ratio and ICA EDV. 6. Total occlusion=unable to detect flow. [facility], , 03/27/2024 9:48 AM
[2024-03-27 10:51] LABS: Chol/HDL Ratio 2.16 Ratio; LDL Cholesterol,Calculated 66.1 mg/dL (0.0-131.0); VLDL Calculation 17.74 mg/dL (5.00-40.00)
[2024-03-27] MEDS: ALPRAZolam 0.5 MG TAB PO PRN (13:03)
[2024-03-27] MEDS: HALOPERIDOL LACTATE 5 MG/ML 1 ML VIAL IVP PRN (14:56)
--- NOTE | 2024-03-27 15:28 | CA ---
Transthoracic Echo Report Name: Sarah Luong Age: 88 Gender: F : 1935 Exam Date: 03/27/2024 08:33 Exam Location: [facility] Ht (in): 65 Wt (lb): 120 Ordering Physician: Jose Landry MD Attending/Referring Phys: [id number], Gr[employer] Animal Attendant Meredith Price RDCS Procedure CPT: Indications: Chest Pain Cardiac Hx: Technical Quality: Good Contrast 1: Total Dose (mL): Contrast 2: Total Dose (mL): MEASUREMENTS (Male / Female) Normal Values 2D ECHO LV Diastolic Diameter PLAX 4.9 cm 4.2 - 5.9 / 3.9 - 5.3 cm LV Systolic Diameter PLAX 3.1 cm IVS Diastolic Thickness 0.9 cm 0.6 - 1.0 / 0.6 - 0.9 cm LVPW Diastolic Thickness 1.0 cm 0.6 - 1.0 / 0.6 - 0.9 cm LV Relative Wall Thickness 0.4 LVOT Diameter 2.0 cm LV Diastolic Volume MOD BP 59.1 cm??? 67 - 155 / 56 - 104 cm??? LV Systolic Volume MOD BP 22.3 cm??? 22 - 58 / 19 - 49 cm??? LV Ejection Fraction MOD BP 62.2 % >= 55 % LV Cardiac Index MOD BP 1820.8 cm???/min???m??? LV Diastolic Volume MOD 4C 60.0 cm??? LV Systolic Volume MOD 4C 21.8 cm??? LV Ejection Fraction MOD 4C 63.7 % LV Cardiac Index MOD 4C 1888.9 cm???/min???m??? LV Diastolic Length 4C 6.8 cm LV Systolic Length 4C 5.5 cm LV Diastolic Volume MOD 2C 57.1 cm??? LV Systolic Volume MOD 2C 22.3 cm??? LV Ejection Fraction MOD 2C 60.9 % LV Cardiac Index MOD 2C 1721.0 cm???/min???m??? LV Diastolic Length 2C 6.5 cm LV Systolic Length 2C 5.4 cm LA Volume 81.9 cm??? 18 - 58 / 22 - 52 cm??? LA Volume Index 51.9 cm???/m??? 16 - 28 cm???/m??? Ascending Aorta Diameter 3.3 cm DOPPLER AV Peak Velocity 144.2 cm/s AV Peak Gradient 8.3 mmHg AV Mean Velocity 100.9 cm/s AV Mean Gradient 4.6 mmHg AV Velocity Time Integral 30.1 cm LVOT Peak Velocity 109.2 cm/s LVOT Peak Gradient 4.8 mmHg LVOT Velocity Time Integral 21.6 cm LVOT Stroke Volume 67.1 cm??? LVOT Stroke Volume Index 42.1 ml/m??? LVOT Cardiac Index 3319.2 cm???/min???m??? AV Area Cont Eq vti 2.2 cm??? AV Area Cont Eq pk 2.4 cm??? MV Area PHT 2.5 cm??? Mitral E Point Velocity 59.9 cm/s Mitral A Point Velocity 104.7 cm/s Mitral E to A Ratio 0.6 MV Deceleration Time 309.2 ms PV Peak Velocity 104.3 cm/s PV Peak Gradient 4.4 mmHg FINDINGS Left Ventricle Left ventricular ejection fraction is estimated at 55-60 %. Left ventricular cavity size normal. No obvious regional wall motion abnormalities. Right Ventricle Normal right ventricular size and function. Unable to estimate the right ventricular systolic pressure. Right Atrium Mild right atrial dilatation. Left Atrium Severely increased left atrial volume. Mitral Valve Structurally normal mitral valve. Mild mitral annular calcification. No evidence for mitral valve prolapse. No mitral stenosis. Mild mitral regurgitation. Aortic Valve Focal thickening of the aortic valve cusps. No aortic valve stenosis or regurgitation.aortic valve sclerosis. Tricuspid Valve Structurally normal tricuspid valve. No tricuspid stenosis. Mild tricuspid regurgitation. Pulmonic Valve Pulmonic valve not well visualized. No pulmonic stenosis. No pulmonic regurgitation. Pericardium No pericardial effusion. Aorta Normal size aortic root and proximal ascending aorta. CONCLUSIONS 1. Normal left ventricular size and systolic function 2. Mild mitral and tricuspid regurgitation Previewed by: Dr. Tony Vallecillo MD (Electronically Signed) Final Date: 27 March 2024 15:27
[2024-03-27] MEDS: OLANZapine 10 MG VIAL IM STA (17:15)
[2024-03-28] MEDS: METOPROLOL TARTRATE 25 MG TAB PO SCH (06:46)
[2024-03-28] MEDS: amLODIPine 10 MG TAB PO SCH (08:01)
[2024-03-28] MEDS: FAMOTIDINE 20 MG/2 ML VIAL IV SCH (08:01)
--- NOTE | 2024-03-28 10:01 | P.PN ---
Subjective Progress Note Date: 03/28/24 Principal diagnosis: Altered mental status with slurred speech and urinary tract infection. Ms. Luong is a 88-year-old female right-handed with medical history of hypertension as well as sciatica and hypothyroidism for which she received thyroidectomy in the past. She was seen and admitted to [facility] on March 26, 2004 after she woke up 7:30 AM with slurred speech and possible aphasia. Her last known normal time was the previous night. She has noted some increased urinary frequency however, she is incontinent of urine wears pads normally. On admission her initial blood pressure was 209/100. This has been managed and is currently running 150s. Her speech abnormalities appear to improve if her blood pressure was lowered however her pressure was back up again this morning patient did have significant speech deficits. This appears to be possible waxing and waning according to the ER nurse. At this time she is alert and oriented x 3 with nonfocal neurologic exam. CT of the head as well as CT angiogram of the head and neck were negative last night. When seen initially by neurology on March 28, 2024 she was ordered for repeat CT in the morning and over the . However your emergency room is also ordered an MRI of the brain. Per nursing report last night she was extremely agitated approximately 4 AM. She has now gone to sleep and is sleeping comfortably for about the past 10 to 15 minutes she is very difficult to arouse and will not follow commands. On exam she appears to be withdrawing her right arm less than her left. Legs appear symmetric with withdrawal bilaterally and I do not detect any reflex abnormalities or upgoing toes. Results Contrast CT of the head from March 26 was read as no acute intracranial abnormalities with some small vessel disease as well as a left temporal calcif ied meningioma of uncertain significance. CT angiogram of the head and neck revealed no evidence of carotid dissection, high-grade stenosis, or aneurysm. Chest x-ray was read as negative as well as EKG with normal sinus rhythm at 88 bpm. Pertinent laboratories include white blood cell count of 9.8, creatinine of 0.94. Urinalysis revealed 26 white blood cells with small leukocyte Estrace. Urine drug screen was negative. She also received a carotid ultrasound on March 27 revealing no evidence of high-grade stenosis. Lower extremity ultrasound revealed no evidence of DVT. Echocardiogram from March 27 revealed ejection fraction of 55 to 60% with increased left atrial size. Ms. Luong is an 88-year-old right-handed female with history of hypert ension, sciatica, hypothyroidism who was admitted last night with altered mental status and slurred speech elevated blood pressure of 209/110. It appears as though his blood pressure is lowered her symptoms appear to be improved. I do not detect any focal neurologic deficit on exam. She is underwent a CT and CT angiogram that are negative. 1. I will place the patient on Seroquel 50 mg nightly as well as melatonin 5 mg nightly to regulate her sleep-wake cycle so that she is more alert in the morning and less agitated at night. 2.. She is pending an MRI of the brain today as well as repeat CT scan to look for any evidence of ischemic infarct. 3. Neurology will continue to follow patient house make further recommendations as needed. Objective - Vital Signs Vital signs: Vital Signs Temp 99.3 F 03/28/24 08:00 Pulse 96 03/28/24 08:00 Resp 16 03/28/24 08:00 BP 184/89 03/28/24 08:00 Pulse Ox 96 03/28/24 08:00 FiO2 Intake & Output 03/27/24 03/28/24 03/28/24 18:59 06:59 18:59 Intake Total 190 Balance 190 Weight 54.431 kg 54.5 kg Intake: IV 10 Invasive Line 1 10 Oral 180 Other: Voiding Method Diaper Diaper Diaper # Voids 2 1 0 - Labs CBC & Chem 7: 03/27/24 06:46 03/27/24 06:46 Labs: Abnormal Lab Results - Last 24 Hours (Table) 03/27/24 Range/Units 06:46 HDL Cholesterol 72.20 H (40.00-60.00) mg/dL
[2024-03-28] MEDS ORDERED: cloNIDine 0.2 MG/24HR PATCH TRANSDERM SCH (10:30)
--- NOTE | 2024-03-28 13:01 | MR ---
EXAMINATION TYPE: MR brain wo con DATE OF EXAM: 03/28/2024 12:39 PM COMPARISON: 03/28/2024. CLINICAL INDICATION: Female, 88 years old with history of Neuro deficit, acute, stroke suspected; PHH , Neuro deficit, acute, stroke suspected TECHNIQUE: Multi planar, multi sequence imaging was performed through the brain including: T1, T2, In version recovery, Diffusion weighted imaging, and gradient echo imaging. No gadolinium was given. FINDINGS: Left calcified meningioma as seen on CT measuring up to 15 mm. Bilateral cerebellar hemisph ere remote injuries. Mild generalized atrophy with proportional dilation of ventricular system. The g ray-white junctions, ventricular system, basal cisterns appear unremarkable. Scattered foci of high T2 signal intensity are seen within the periventricular white matter. Midline structures show no abn ormality. Diffusion-weighted imaging shows no evidence of restricted diffusion. Susceptibility foci i n the right cerebral hemisphere and right alva cysts compatible with microhemorrhage. The bone marrow signal is within normal limits. Paranasal sinuses and mastoid air cells: No significant paranasal sinus disease. Visualized orbits: Bilateral aphakia IMPRESSION: 1. No evidence of intracranial mass or acute/subacute infarct. 2. Nonspecific white matter changes, likely secondary to small vessel ischemic disease. 3. Calcified left temporal meningioma. [facility], , 03/28/2024 12:58 PM
--- NOTE | 2024-03-28 13:32 | CT ---
EXAMINATION TYPE: CT brain wo/w con DATE OF EXAM: 03/28/2024 1:13 PM COMPARISON: MRI same day. CT 03/18/2024 CLINICAL INDICATION: Female, 88 years old with history of slurred, speech, AMS with BP 209/110.; slur red, speech, AMS with BP 209/110. TECHNIQUE: Axial CT images were obtained with coronal and sagittal reformats created and reviewed. Contrast used:80ml mL of Isovue 300 without and with IV Contrast, Oral contrast used: none. CT DLP: 2315 mGycm, Automated exposure control for dose reduction was used. FINDINGS: Brain: Extra-axial spaces: No abnormal extra-axial fluid collections. Left extra-axial calcified lesion like ly representing calcified meningioma measuring up to 18 mm. Ventricular system: Dilatation in proportion to cerebral atrophy. Cerebral parenchyma: Cerebral atrophy. No acute intraparenchymal hemorrhage or mass effect. The hanna -white junction is well differentiated. Scattered hypoattenuating areas are seen within the white mat ter. Cerebellum: Unremarkable. Mass effect: No evidence of midline shift. Intracranial vasculature: Atherosclerotic calcifications of the intracranial vessels. Soft tissues: Normal. Calvarium/osseous structures: No depressed skull fracture. Paranasal sinuses and mastoid air cells: Mild scattered paranasal sinus disease. Visualized orbits: Bilateral aphakia IMPRESSION: 1. No acute intracranial process. No abnormal postcontrast enhancement. 2. Nonspecific white matter changes, likely secondary to chronic small vessel ischemic disease. 3. Left temporal region probable calcified meningioma. [facility], , 03/28/2024 1:30 PM
--- NOTE | 2024-03-28 19:49 | P.PN ---
Subjective Ms. Luong is a 88-year-old female right-handed with medical history of hypertension as well as sciatica and hypothyroidism for which she received thyroidectomy in the past. She was seen and admitted to [facility] on March 26, 2004 after she woke up 7:30 AM with slurred speech and possible aphasia. Her last known normal time was the previous night. She has noted some increased urinary frequency however, she is incontinent of urine wears pads normally. On admission her initial blood pressure was 209/100. This has been m anaged and is currently running 150s. Her speech abnormalities appear to improve if her blood pressure was lowered however her pressure was back up again this morning patient did have significant speech deficits. This appears to be possible waxing and waning according to the ER nurse. At this time she is alert and oriented x 3 with nonfocal neurologic exam. CT of the head as well as CT angiogram of the head and neck were negative last night. Neurology has been consulted for further management recommendations.\ 03/27 Patient doing well today, she denies any specific symptoms, no slurred speech, no other neurological symptom She is eager to go home but she agrees to stay now Blood pressure on the high side 157/80, metoprolol 12.5 mg and Norvasc 5 mg was added Also urine analysis is repeated and still suspicious for infection. Patient also with increased frequency. Will start patient on ceftriaxone pending urine culture Further workup like echocardiogram, carotid Dopplers, ultrasound of the legs and TSH are still pending 03/28 Patient was educated states yesterday she has to get several doses of Seroquel, Ativan Haldol and Valium Stroke called out with negative MRI, . And repeat CT of the brain Seroquel 50 mg added at bedtime Urine culture is growing gram-negative bacilli Patient remains on ceftriaxone so far Objective - Vital Signs Vital signs: Vital Signs Temp 98.7 F 03/28/24 11:39 Pulse 60 03/28/24 11:39 Resp 16 03/28/24 11:39 BP 126/71 03/28/24 11:39 Pulse Ox 98 03/28/24 11:39 FiO2 Intake & Output 03/27/24 03/28/24 03/28/24 18:59 06:59 18:59 Intake Total 190 Balance 190 Weight 54.431 kg 54.5 kg Intake: IV 10 Invasive Line 1 10 Oral 180 Other: Voiding Method Diaper Diaper Diaper # Voids 2 1 0 - Exam GENERAL: The patient is alert and oriented x3, not in any acute distress. Well developed, well nourished. HEENT: Pupils are round and equally reacting to light. EOMI. No scleral icterus. No conjunctival pallor. Normocephalic, atraumatic. No pharyngeal erythema. No thyromegaly. CARDIOVASCULAR: S1 and S2 present. No murmurs, rubs, or gallops. PULMONARY: Chest is clear to auscultation, no wheezing , no crackles. ABDOMEN: Soft, nontender, nondistended, normoactive bowel sounds. No palpable organomegaly. MUSCULOSKELETAL: No joint swelling or deformity. EXTREMITIES: No cyanosis, clubbing, or pedal edema. NEUROLOGICAL: Gross neurological examination did not reveal any focal deficits. SKIN: No rashes. no petechiae. - Labs CBC & Chem 7: 03/27/24 06:46 03/27/24 06:46 Labs: Microbiology - Last 24 Hours (Table) 03/27/24 06:45 Urine Culture - Preliminary Urine,Voided Gram Neg Bacilli Assessment and Plan Assessment: Transient slurred speech and expressive aphasia suspicious. r stroke ruled out. Most likely metabolic encephalopathy secondary to UTI. This happens most likely secondary to dementia with behavioral disturbances precipitated by systemic infection Acute urinary tract infection Hypertension, uncontrolled on admission Hyperglycemia, rule out diabetes mellitus Plan: Start ceftriaxone and follow-up urine culture Start metoprolol and Norvasc Discontinue aspirin Stroke workup was negative Monitor blood pressure Neurology consult labs and medication were reviewed.. Continue same treatment. Continue with symptomatic treatment. Resume home medication. Monitor labs and vitals. DVT and GI prophylaxis. Further recommendations as per clinical course of the patient DVT prophylaxis: Subcutaneous heparin GI Prophylaxis: Pepcid Prognosis is guarded
[2024-03-28] MEDS: MELATONIN 5 MG TABLET PO SCH (23:28)
[2024-03-28] MEDS: QUEtiapine 50 MG TAB PO SCH (23:28)
--- NOTE | 2024-03-29 08:12 | P.PN ---
Subjective Progress Note Date: 03/28/24 Principal diagnosis: Altered mental status and slurred speech with urinary tract infection. ltered mental status with slurred speech and urinary tract infection. Ms. Luong is a 88-year-old female right-handed with medical history of hypertension as well as sciatica and hypothyroidism for which she received thyroidectomy in the past. She was seen and admitted to [facility] on March 26, 2004 after she woke up 7:30 AM with slurred speech and possible aphasia. Her last known normal time was the previous night. She has noted some increased urinary frequency however, she is incontinent of urine wears pads normally. On admission her initial blood pressure was 209/100. This has been managed and is currently running 150s. Her speech abnormalities appear to improve if her blood pressure was lowered however her pressure was back up again this morning patient did have significant speech deficits. This appears to be possible waxing and waning according to the ER nurse. At this time she is alert and oriented x 3 with nonfocal neurologic exam. CT of the head as well as CT angiogram of the head and neck were negative last night. When seen initially by neurology on March 28, 2024 she was ordered for repeat CT in the morning and over the . However the emergency room has also ordered an MRI of the brain. Per nursing report last night she was extremely agitated approximately 4 AM. She has now gone to sleep and is sleeping comfortably for about the past 10 to 15 minutes she is very difficult to arouse and will not follow commands. On exam she appears to be withdrawing her right arm less than her left. Legs appear symmetric with withdrawal bilaterally and I did not detect any reflex abnormalities or upgoing toes. When seen in follow-up March 29, it is noted that her MRI of the brain from March 28 showed no evidence of infarct with small vessel disease and a left calcified temporal meningioma. CT CT scan of the head was negative as well her LDL was low at 66.1 and urine culture revealed gram-negative rods. This morning the patient is alert and arousable. She is oriented to hospital and is able to follow both simple and complex commands. Her neurologic exam is nonfocal at this time Results Contrast CT of the head from March 26 was read as no acute intracranial abnormalities with some small vessel disease as well as a left temporal calcified meningioma of uncertain significance. CT angiogram of the head and neck revealed no evidence of carotid dissection, high-grade stenosis, or aneurysm. Chest x-ray was read as negative as well as EKG with normal sinus rhythm at 88 bpm. Pertinent laboratories include white blood cell count of 9.8, creatinine of 0.94. Urinalysis revealed 26 white blood cells with small leukocyte Estrace. Urine drug screen was negative. She also received a carotid ultrasound on March 27 revealing no evidence of high-grade stenosis. Lower extremity ultrasound revealed no evidence of DVT. Echocardiogram from March 27 revealed ejection fraction of 55 to 60% with increased left atrial size. MRI of the brain from March 28 revealed no evidence of acute infarction with some small vessel disease and a calcified left temporal meningioma. Ms. Luong is an 88-year-old right-handed female with history of hypertension, sciatica, hypothyroidism who was admitted last night with altered mental status and slurred speech elevated blood pressure of 209/110. It appears as though his blood pressure is lowered her symptoms appear to be improved. I do not detect any focal neurologic deficit on exam. She is underwent a CT and CT angiogram that are negative. 1. The patient remains on Rocephin 1 g every 24 hours for her urinary tract infection and this should continue as per primary team. 2. The patient has evidence of a calcified meningioma on the left temporal area by CT and MRI. This is likely chronic in nature especially as it is calcified, but she should likely have repeat CT and/or MRI in approximately 1 years time to look for any increase in the size of the meningioma. This may help be followed by her outpatient physicians. 3. Neurology will tentatively sign off on this patient. Please reconsult if further neurologic issues exist. Dr. Vasquez Moise will be covering for neurology starting tomorrow March 30. Objective - Vital Signs Vital signs: Vital Signs Temp 97.0 F L 03/28/24 20:19 Pulse 68 03/29/24 04:28 Resp 18 03/29/24 04:28 BP 144/72 03/29/24 04:28 Pulse Ox 99 03/29/24 04:28 FiO2 Intake & Output 03/28/24 03/29/24 03/29/24 18:59 06:59 18:59 Intake Total 250 360 Output Total 400 0 Balance -150 360 Weight 58 kg Intake: IV 20 20 Invasive Line 1 20 20 Intake, IV Titration 50 Amount cefTRIAXone 1 gm In 50 Sodium Chloride 0.9% 50 ml @ 100 mls/hr IVPB Q24HR [facility] Rx#:[id number] Oral 180 340 Output: Urine 400 0 Straight 400 Post Void Residual 0 Other: Voiding Method Diaper Diaper # Voids 0 # Bowel Movements 0 - Labs CBC & Chem 7: 03/27/24 06:46 03/27/24 06:46 Labs: Microbiology - Last 24 Hours (Table) 03/27/24 06:45 Urine Culture - Preliminary Urine,Voided Gram Neg Bacilli
[2024-03-29] MEDS: hydrALAZINE HCL 20 MG/ML 1 ML VIAL IVP PRN (11:39)
[2024-03-29] MEDS: QUEtiapine 25 MG TAB PO STA (12:28)
--- NOTE | 2024-03-30 04:31 | P.PN ---
Subjective Ms. Luong is a 88-year-old female right-handed with medical history of hypertension as well as sciatica and hypothyroidism for which she received thyroidectomy in the past. She was seen and admitted to [facility] on March 26, 2004 after she woke up 7:30 AM with slurred speech and possible aphasia. Her last known normal time was the previous night. She has noted some increased urinary frequency however, she is incontinent of urine wears pads normally. On admission her initial blood pressure was 209/100. This has been m anaged and is currently running 150s. Her speech abnormalities appear to improve if her blood pressure was lowered however her pressure was back up again this morning patient did have significant speech deficits. This appears to be possible waxing and waning according to the ER nurse. At this time she is alert and oriented x 3 with nonfocal neurologic exam. CT of the head as well as CT angiogram of the head and neck were negative last night. Neurology has been consulted for further management recommendations.\ 03/27 Patient doing well today, she denies any specific symptoms, no slurred speech, no other neurological symptom She is eager to go home but she agrees to stay now Blood pressure on the high side 157/80, metoprolol 12.5 mg and Norvasc 5 mg was added Also urine analysis is repeated and still suspicious for infection. Patient also with increased frequency. Will start patient on ceftriaxone pending urine culture Further workup like echocardiogram, carotid Dopplers, ultrasound of the legs and TSH are still pending 03/28 Patient was educated states yesterday she has to get several doses of Seroquel, Ativan Haldol and Valium Stroke called out with negative MRI, . And repeat CT of the brain Seroquel 50 mg added at bedtime Urine culture is growing gram-negative bacilli Patient remains on ceftriaxone so far 03/29 Patient was more awake in the morning more appropriate, she was sitting up in bed eating her breakfast She was just mildly jittery, relates she got little bit more confused, rapidly over Seroquel as needed she remains on ceftriaxone for UTI Objective - Vital Signs Vital signs: Vital Signs Temp 97.9 F 03/29/24 08:23 Pulse 88 03/29/24 11:34 Resp 16 03/29/24 11:34 BP 180/89 03/29/24 11:34 Pulse Ox 97 03/29/24 11:34 FiO2 Intake & Output 03/28/24 03/29/24 03/29/24 18:59 06:59 18:59 Intake Total 250 360 10 Output Total 400 0 Balance -150 360 10 Weight 58 kg Intake: IV 20 20 10 Invasive Line 1 20 20 10 Intake, IV Titration 50 Amount cefTRIAXone 1 gm In 50 Sodium Chloride 0.9% 50 ml @ 100 mls/hr IVPB Q24HR [facility] Rx#:[id number] Oral 180 340 Output: Urine 400 0 Straight 400 Post Void Residual 0 Other: Voiding Method Diaper Diaper Diaper # Voids 0 # Bowel Movements 0 - Exam GENERAL: The patient is alert and oriented x3, not in any acute distress. Well developed, well nourished. HEENT: Pupils are round and equally reacting to light. EOMI. No scleral icterus. No conjunctival pallor. Normocephalic, atraumatic. No pharyngeal erythema. No thyromegaly. CARDIOVASCULAR: S1 and S2 present. No murmurs, rubs, or gallops. PULMONARY: Chest is clear to auscultation, no wheezing , no crackles. ABDOMEN: Soft, nontender, nondistended, normoactive bowel sounds. No palpable organomegaly. MUSCULOSKELETAL: No joint swelling or deformity. EXTREMITIES: No cyanosis, clubbing, or pedal edema. NEUROLOGICAL: Gross neurological examination did not reveal any focal deficits. SKIN: No rashes. no petechiae. - Labs CBC & Chem 7: 03/27/24 06:46 03/27/24 06:46 Labs: Microbiology - Last 24 Hours (Table) 03/27/24 06:45 Urine Culture - Final Urine,Voided Escherichia coli Assessment and Plan Assessment: Transient slurred speech and expressive aphasia suspicious. r stroke ruled out. Most likely metabolic encephalopathy secondary to UTI. This happens most likely secondary to dementia with behavioral disturbances precipitated by systemic infection Acute urinary tract infection Hypertension, uncontrolled on admission Hyperglycemia, rule out diabetes mellitus Plan: Start ceftriaxone and follow-up urine culture Start metoprolol and Norvasc Discontinue aspirin Stroke workup was negative Monitor blood pressure Neurology consult labs and medication were reviewed.. Continue same treatment. Continue with symptomatic treatment. Resume home medication. Monitor labs and vitals. DVT and GI prophylaxis. Further recommendations as per clinical course of the patient DVT prophylaxis: Subcutaneous heparin GI Prophylaxis: Pepcid Prognosis is guarded
[2024-03-31 08:57] LABS: African American GFR (CKD) 86 (>60 ml/min/1.73 sqM); Anion Gap 9 mmol/L; Blood Urea Nitrogen 27 mg/dL (7-17); Calcium 9.6 mg/dL (8.4-10.2); Carbon Dioxide 24 mmol/L (22-30); Chloride 107 mmol/L (98-107); Glucose 170 mg/dL (74-99); Non-African American GFR(CKD) 74 (>60 ml/min/1.73 sqM); Sodium 140 mmol/L (137-145)
[2024-03-31 08:59] LABS: Potassium 4.4 mmol/L (3.5-5.1)
[2024-03-31 09:27] LABS: Anisocytosis Slight; Basophils # (A) 0.3 k/uL (0-0.2); Basophils % (A) 4 %; Eosinophils # (A) 0.1 k/uL (0-0.7); Eosinophils % (A) 2 %; HCT 48.5 % (34.0-46.0); HGB 15.2 gm/dL (11.4-16.0); Lymphocytes # (A) 0.5 k/uL (1.0-4.8); Lymphocytes % (A) 6 %; MCH 28.6 pg (25.0-35.0); MCHC 31.3 g/dL (31.0-37.0); MCV 91.4 fL (80.0-100.0); Mean Platelet Volume 7.1; Monocytes # (A) 0.5 k/uL (0-1.0); Monocytes % (A) 7 %; Neutrophils # (A) 6.2 k/uL (1.3-7.7); Neutrophils % (A) 81 %; RBC 5.31 m/uL (3.80-5.40); RDW 16.4 % (11.5-15.5); WBC 7.6 k/uL (3.8-10.6)
--- NOTE | 2024-03-31 11:16 | P.PN ---
Subjective Progress Note Date: 03/30/24 Ms. Luong is a 88-year-old female right-handed with medical history of hypertension as well as sciatica and hypothyroidism for which she received thyroidectomy in the past. She was seen and admitted to [facility] on March 26, 2004 after she woke up 7:30 AM with slurred speech and possible aphasia. Her last known normal time was the previous night. She has noted some increased urinary frequency however, she is incontinent of urine wears pads normally. On admission her initial blood pressure was 209/100. This has been managed and is currently running 150s. Her speech abnormalities appear to improve if her blood pressure was lowered however her pressure was back up again this morning patient did have significant speech deficits. This appears to be possible waxing and waning according to the ER nurse. At this time she is alert and oriented x 3 with nonfocal neurologic exam. CT of the head as well as CT angiogram of the head and neck were negative last night. Neurology has been consulted for further management recommendations.\ 03/27 Patient doing well today, she denies any specific symptoms, no slurred speech, no other neurological symptom She is eager to go home but she agrees to stay now Blood pressure on the high side 157/80, metoprolol 12.5 mg and Norvasc 5 mg was added Also urine analysis is repeated and still suspicious for infection. Patient also with increased frequency. Will start patient on ceftriaxone pending urine culture Further workup like echocardiogram, carotid Dopplers, ultrasound of the legs and TSH are still pending 03/28 Patient was educated states yesterday she has to get several doses of Seroquel, Ativan Haldol and Valium Stroke called out with negative MRI, . And repeat CT of the brain Seroquel 50 mg added at bedtime Urine culture is growing gram-negative bacilli Patient remains on ceftriaxone so far 03/29 Patient was more awake in the morning more appropriate, she was sitting up in bed eating her breakfast She was just mildly jittery, relates she got little bit more confused, rapidly over Seroquel as needed she remains on ceftriaxone for UTI 03/30/2024 Patient is sitting in the bed. Awake alert but confused. No complaints of chest pain or shortness of breath. Patient is on room air. Was able to tolerate oral diet. Current on antibiotics for urinary tract infection. Urine culture showed gram- negative bacilli. Neurological workup is negative. Current medications reviewed. Objective - Vital Signs Vital signs: Vital Signs Temp 98.4 F 03/30/24 20:00 Pulse 66 03/30/24 20:00 Resp 16 03/30/24 20:00 BP 147/72 03/30/24 20:00 Pulse Ox 97 03/30/24 20:00 FiO2 Intake & Output 03/30/24 03/30/24 03/31/24 06:59 18:59 06:59 Intake Total 20 600 Output Total 300 200 Balance -280 400 Intake: IV 20 Invasive Line 1 20 Oral 600 Output: Urine 300 200 Other: Voiding Method Diaper Diaper Diaper External Catheter External Catheter External Catheter # Voids 1 # Bowel Movements 0 - Exam - Exam GENERAL: The patient is alert and oriented x3, not in any acute distress. Well developed, well nourished. HEENT: Pupils are round and equally reacting to light. EOMI. No scleral icterus. No conjunctival pallor. Normocephalic, atraumatic. No pharyngeal erythema. No thyromegaly. CARDIOVASCULAR: S1 and S2 present. No murmurs, rubs, or gallops. PULMONARY: Chest is clear to auscultation, no wheezing , no crackles. ABDOMEN: Soft, nontender, nondistended, normoactive bowel sounds. No palpable organomegaly. MUSCULOSKELETAL: No joint swelling or deformity. EXTREMITIES: No cyanosis, clubbing, or pedal edema. NEUROLOGICAL: Gross neurological examination did not reveal any focal deficits. SKIN: No rashes. no petechiae. - Labs CBC & Chem 7: 03/31/24 08:31 03/31/24 08:31 Assessment and Plan Assessment: Transient slurred speech and expressive aphasia suspicious. r stroke ruled out. Most likely metabolic encephalopathy secondary to UTI. This happens most likely secondary to dementia with behavioral disturbances precipitated by systemic infection Acute urinary tract infection Hypertension, uncontrolled on admission Hyperglycemia, rule out diabetes mellitus Plan: Start ceftriaxone and follow-up urine culture Start metoprolol and Norvasc Discontinue aspirin Stroke workup was negative Monitor blood pressure Neurology consult labs and medication were reviewed..Monitor labs and vitals. DVT and GI prophylaxis. Further recommendations as per clinical course of the patient DVT prophylaxis: Subcutaneous heparin GI Prophylaxis: Pepcid Prognosis is guarded Time with Patient: Greater than 30
[2024-03-31 12:49] LABS: Platelet Count 180 k/uL (150-450)
[2024-03-31 12:51] LABS: Ovalocytes Present; Poikilocytosis (M) Present
--- NOTE | 2024-03-31 14:55 | P.PN ---
Subjective Progress Note Date: 03/31/24 I am seeing the patient for the first time during this admission. Please refer to Dr. Houser notes for further details. Patient is accompanied with her daughter was at bedside. It seems to the patient has underlying history of hypertension and has stopped taking her medication according to the daughter the patient was confused and her blood pressure was high as high as 200s over 100 as well as has acute urinary tract infection. It seems that the patient had urinary symptoms and she went to her primary care office and notified her PCP about her urinary symptoms but according to the patient that was not addressed and she did not have a urine analysis performed. Per the patient's daughter she states that the patient's confusion has resolved and she is back to baseline. She does not have any focal weakness. Patient had MRI of the brain which was unremarkable for any acute process. Objective - Vital Signs Vital signs: Vital Signs Temp 98.5 F 03/31/24 12:00 Pulse 73 03/31/24 12:00 Resp 18 03/31/24 12:00 BP 158/77 03/31/24 12:00 Pulse Ox 95 03/31/24 12:00 FiO2 Intake & Output 03/30/24 03/31/24 03/31/24 18:59 06:59 18:59 Intake Total 600 120 Output Total 200 100 Balance 400 -100 120 Intake: Oral 600 120 Output: Urine 200 100 Other: Voiding Method Diaper Diaper External Catheter External Catheter External Catheter # Voids 1 # Bowel Movements 0 - Exam General: Lying in bed and is not in acute distress. Neuro: The patient is awake alert oriented to self place and time. Is following simple commands. No aphasia. She is able to identify objects correctly such as pen and glasses. Pupils are round equal reactive to light. Pupils are round 3 mm bilaterally. Visual dickerson are full to confrontation. Extraocular movements intact no nystagmus. No facial weakness. No dysarthria Motor the strength is 5 out of 5 throughout. - Labs CBC & Chem 7: 03/31/24 08:31 03/31/24 08:31 Labs: Abnormal Lab Results - Last 24 Hours (Table) 03/31/24 03/31/24 Range/Units 08:31 08:31 Hct 48.5 H (34.0-46.0) % RDW 16.4 H (11.5-15.5) % Lymphocytes # 0.5 L (1.0-4.8) k/uL Basophils # 0.3 H (0-0.2) k/uL BUN 27 H (7-17) mg/dL Glucose 170 H (74-99) mg/dL Assessment and Plan Assessment: Is an 88-year-old woman with underlying history of hypertension who stopped taking her blood pressure and medication and presents because of altered mental status. She was found to have acute urinary tract infection as well as blood pressure was as high as 220s systolic. MRI of the brain is unremarkable for any acute process. Status due to multifactorial due to hypertensive encephalopathy as well as underlying acute urinary tract infection Acute urinary tract infection Hypertension emergency and patient is not compliant taking medication Underlying history of hypertension Plan: Patient is back to baseline. Was counseled on medication compliance. Defer the rest of the medical management to the primary and other specialist. From a neurologic perspective there is no further neurological workup. Will sign off. Please reconsult if needed. Time with Patient: Less than 30
[2024-03-31] MEDS: QUEtiapine 25 MG TAB PO PRN (20:12)
[2024-04-01 08:55] VITALS: TEMP 98.1
--- NOTE | 2024-04-01 11:21 | P.PN ---
Subjective Progress Note Date: 03/31/24 Ms. Luong is a 88-year-old female right-handed with medical history of hypertension as well as sciatica and hypothyroidism for which she received thyroidectomy in the past. She was seen and admitted to [facility] on March 26, 2004 after she woke up 7:30 AM with slurred speech and possible aphasia. Her last known normal time was the previous night. She has noted some increased urinary frequency however, she is incontinent of urine wears pads normally. On admission her initial blood pressure was 209/100. This has been managed and is currently running 150s. Her speech abnormalities appear to improve if her blood pressure was lowered however her pressure was back up again this morning patient did have significant speech deficits. This appears to be possible waxing and waning according to the ER nurse. At this time she is alert and oriented x 3 with nonfocal neurologic exam. CT of the head as well as CT angiogram of the head and neck were negative last night. Neurology has been consulted for further management recommendations.\ 03/27 Patient doing well today, she denies any specific symptoms, no slurred speech, no other neurological symptom She is eager to go home but she agrees to stay now Blood pressure on the high side 157/80, metoprolol 12.5 mg and Norvasc 5 mg was added Also urine analysis is repeated and still suspicious for infection. Patient also with increased frequency. Will start patient on ceftriaxone pending urine culture Further workup like echocardiogram, carotid Dopplers, ultrasound of the legs and TSH are still pending 03/28 Patient was educated states yesterday she has to get several doses of Seroquel, Ativan Haldol and Valium Stroke called out with negative MRI, . And repeat CT of the brain Seroquel 50 mg added at bedtime Urine culture is growing gram-negative bacilli Patient remains on ceftriaxone so far 03/29 Patient was more awake in the morning more appropriate, she was sitting up in bed eating her breakfast She was just mildly jittery, relates she got little bit more confused, rapidly over Seroquel as needed she remains on ceftriaxone for UTI 03/30/2024 Patient is sitting in the bed. Awake alert but confused. No complaints of chest pain or shortness of breath. Patient is on room air. Was able to tolerate oral diet. Current on antibiotics for urinary tract infection. Urine culture showed gram- negative bacilli. Neurological workup is negative. 03/31/2024 Patient is sitting in the chair. Awake alert and oriented x 2-3. Mentation is at baseline as per daughter at bedside. No complaints of chest pain or shortness of the patient did have a bowel meant. No nausea or vomiting. Tolerating oral diet. Urine culture showed E. coli. Patient is on antibiotics with ceftriaxone. Laboratory data showed WBC 7.6 hemoglobin of 10.2 and platelets 180 sodium 140 potassium 4.4 chloride 107 bicarb is 24 BUN 27 creatinine 0.74 and blood sugar is 170. Anticipate discharge in the next 24 hours. Current medications reviewed. Objective - Vital Signs Vital signs: Vital Signs Temp 97.2 F L 03/31/24 19:35 Pulse 77 03/31/24 19:35 Resp 18 03/31/24 19:35 BP 149/72 03/31/24 19:35 Pulse Ox 98 03/31/24 19:35 FiO2 Intake & Output 03/31/24 03/31/24 04/01/24 06:59 18:59 06:59 Intake Total 440 240 Output Total 100 700 Balance -100 440 -460 Intake: Intake, IV Titration 50 Amount cefTRIAXone 1 gm In 50 Sodium Chloride 0.9% 50 ml @ 100 mls/hr IVPB Q24HR [facility] Rx#:[id number] Oral 390 240 Output: Urine 100 700 Other: Voiding Method Diaper External Catheter External Catheter # Voids 1 - Exam - Exam GENERAL: The patient is alert and oriented x3, not in any acute distress. Well developed, well nourished. HEENT: Pupils are round and equally reacting to light. EOMI. No scleral icterus. No conjunctival pallor. Normocephalic, atraumatic. No pharyngeal erythema. No thyromegaly. CARDIOVASCULAR: S1 and S2 present. No murmurs, rubs, or gallops. PULMONARY: Chest is clear to auscultation, no wheezing , no crackles. ABDOMEN: Soft, nontender, nondistended, normoactive bowel sounds. No palpable organomegaly. MUSCULOSKELETAL: No joint swelling or deformity. EXTREMITIES: No cyanosis, clubbing, or pedal edema. NEUROLOGICAL: Gross neurological examination did not reveal any focal deficits. SKIN: No rashes. no petechiae. - Labs CBC & Chem 7: 03/31/24 08:31 03/31/24 08:31 Labs: Abnormal Lab Results - Last 24 Hours (Table) 03/31/24 03/31/24 Range/Units 08:31 08:31 Hct 48.5 H (34.0-46.0) % RDW 16.4 H (11.5-15.5) % Lymphocytes # 0.5 L (1.0-4.8) k/uL Basophils # 0.3 H (0-0.2) k/uL BUN 27 H (7-17) mg/dL Glucose 170 H (74-99) mg/dL Assessment and Plan Assessment: Transient slurred speech and expressive aphasia suspicious. r stroke ruled out. Most likely metabolic encephalopathy secondary to UTI. This happens most likely secondary to dementia with behavioral disturbances precipitated by system ic infection Acute urinary tract infection with E. coli Hypertension, uncontrolled on admission Hyperglycemia, rule out diabetes mellitus Plan: Continue ceftriaxone for urinary tract infection. Continue with metoprolol and Norvasc Discontinue aspirin Stroke workup was negative Monitor blood pressure and titrate blood pressure medications as needed. Neurology on board. labs and medication were reviewed..Monitor labs and vitals. DVT and GI prophylaxis. Further recommendations as per clinical course of the patient DVT prophylaxis: Subcutaneous heparin GI Prophylaxis: Pepcid Prognosis is guarded Anticipate discharge home in the next 24 hours. Patient's daughter would like to take her home. Time with Patient: Greater than 30
[2024-04-01 13:23] VITALS: BP 144/61; PULSE 72; RESP 18
== END 2024-04-01 16:34 | disposition home or self-care (01) | DRG 689 ==
LOC: EC 12:32 → 3SCARD 14:15
PROVIDERS: ADMIT Internal Medicine; ATTEND Internal Medicine
DX: N39.0 Urinary tract infection, site not specified (principal); G93.41 Metabolic encephalopathy; F03.918 Unspecified dementia, unspecified severity, with other behavioral disturbance; I16.1 Hypertensive emergency; I67.4 Hypertensive encephalopathy; R47.01 Aphasia; E89.0 Postprocedural hypothyroidism; R47.81 Slurred speech; I10 Essential (primary) hypertension; B96.20 Unspecified Escherichia coli [E. coli] as the cause of diseases classified elsewhere; G89.29 Other chronic pain; M54.30 Sciatica, unspecified side; R32 Unspecified urinary incontinence; R73.9 Hyperglycemia, unspecified; Z91.128 Patient's intentional underdosing of medication regimen for other reason; Z79.890 Hormone replacement therapy; Z79.899 Other long term (current) drug therapy
CPT/HCPCS: 36415; 51702; 51798; 70450; 70470; 70496; 70498; 70551; 71046; 80048; 80053; 80061; 80306; 81001; 82550; 83880; 85025; 85610; 85730; 87077; 87086; 87186; 93005; 93306; 93880; 93970; 96361; 96372; 96374; 96375; 96376; 99291